=== PATIENT | female | born 1940 | race Caucasian/White ===

== ENCOUNTER 2022-11-07 20:34 | Inpatient (IN) | payer OTHER ==
[2022-11-07] MEDS ORDERED: methylPREDNISolone NA SUCC 125 MG/2 ML VIAL ONE (20:38)
[2022-11-07] MEDS ORDERED: methylPREDNISolone NA SUCC 125 MG/2 ML VIAL IVPUSH ONE (20:47)
[2022-11-07 21:19] LABS: ARTERIAL BLD GAS O2 SATURATION 88.5 % (95-98); ARTERIAL BLOOD GAS PO2 62.6 mmHg (80-100); ARTERIAL BLOOD GAS pH 7.306 (7.350-7.450)
[2022-11-07] MEDS ORDERED: FUROSEMIDE 40 MG/4 ML INJECTABLE VIAL IVPUSH ONE (21:21)
[2022-11-07 21:46] LABS: POTASSIUM 3.9 mmol/L (3.5-5.1)
[2022-11-07 21:47] LABS: INR 1.72 (0.83-1.09); PROTHROMBIN TIME (PATIENT) 19.8 SEC (9.7-13.0)
[2022-11-07 21:48] LABS: CALCIUM 9.3 mg/dL (8.5-10.1)
[2022-11-07 21:49] LABS: ACTIVATED PTT 42.7 SECONDS (25.2-36.5); ALBUMIN 3.1 g/dl (3.4-5.0); BLOOD UREA NITROGEN 67.8 mg/dL (7-18)
[2022-11-07 21:52] LABS: CREATININE 1.6 mg/dL (0.55-1.3); PHOSPHOROUS 3.4 mg/dL (2.5-4.9)
[2022-11-07 21:53] LABS: BILIRUBIN,TOTAL 1.2 mg/dL (0.2-1)
[2022-11-07 21:54] LABS: TOT PROT 6.1 g/dl (6.4-8.2)
[2022-11-07] MEDS ORDERED: FUROSEMIDE 40 MG/4 ML INJECTABLE VIAL ONE (21:57)
[2022-11-07 22:01] LABS: N-TERMINAL BNP 7631.5 pg/ml (5-450)
[2022-11-07 22:03] LABS: HEMOGLOBIN 11.3 GM/dL (10.7-15.3); MCH 27.2 pg (25.7-33.7); MCHC 29.7 g/dl (32.0-36.0); MEAN CELL VOLUME 91.7 fl (80-96); MEAN PLT VOLUME 7.9 fl (7.5-11.1); PLATELET COUNT 244 10^3/uL (134-434); RBC 4.14 M/mm3 (3.60-5.2); RDW 19.4 % (11.6-15.6); WHITE BLOOD COUNT 18.6 K/mm3 (4.0-10.0)
[2022-11-07 22:31] LABS: EPI CELLS 5 /uL (0-25.1); HYALINE CASTS 0 /uL (0-3.1); PH,URINE 5.5 (5.0-8.0); URINE APPEARANCE CLOUDY; URINE BILIRUBIN NEGATIVE (NEGATIVE); URINE COLOR YELLOW; URINE GLUCOSE (UA) NEGATIVE (NEGATIVE); URINE KETONE NEGATIVE (NEGATIVE); URINE LEUK ESTERASE 3+ (NEGATIVE); URINE NITRITE POSITIVE (NEGATIVE); URINE PROTEIN 2+ (NEGATIVE); URINE RBC 44 /uL (0-23.9); URINE WBC 2892 /uL (0-25.8)
[2022-11-07 22:34] LABS: ARTERIAL BLD GAS O2 SATURATION 94.4 % (95-98); ARTERIAL BLOOD GAS BASE EXCESS 9.9 mmol/L (-2-2); ARTERIAL BLOOD GAS PO2 77.1 mmHg (80-100); ARTERIAL BLOOD GAS pH 7.358 (7.350-7.450)
[2022-11-07 22:43] LABS: ANISOCYTOSIS 1+; MACROCYTOSIS 0
[2022-11-07] MEDS ORDERED: CEFTRIAXONE 1 GM/50 ML BAG ONE (22:52)
[2022-11-07 23:59] LABS: URINE BACTERIA 1347.7 /uL (0-1359)
[2022-11-08] MEDS ORDERED: APIXABAN 2.5 MG TABLET PO SCH (00:30)
[2022-11-08 04:18] LABS: ARTERIAL BLD GAS O2 SATURATION 97.3 % (95-98); ARTERIAL BLOOD GAS BASE EXCESS 12.7 mmol/L (-2-2); ARTERIAL BLOOD GAS PO2 98.1 mmHg (80-100); ARTERIAL BLOOD GAS pH 7.413 (7.350-7.450)
[2022-11-08 04:20] LABS: ALLENS TEST POSITIVE
[2022-11-08 04:21] LABS: VENT MODE S/T
[2022-11-08] MEDS ORDERED: ALBUTEROL SO4 2.5/IPRATROPIUM 0.5 INH SOL 3 ML VIAL.NEB. NEB PRN ×2 (04:52→08:47)
[2022-11-08] MEDS ORDERED: methylPREDNISolone NA SUCC 40 MG/1 ML VIAL IVPUSH SCH (05:00)
[2022-11-08 06:53] LABS: ALLENS TEST POSITIVE; ARTERIAL BLD GAS O2 SATURATION 91.6 % (95-98); ARTERIAL BLOOD GAS BASE EXCESS 11.2 mmol/L (-2-2); ARTERIAL BLOOD GAS PO2 65.9 mmHg (80-100); ARTERIAL BLOOD GAS pH 7.365 (7.350-7.450)
[2022-11-08 06:54] LABS: VENT MODE S/T
[2022-11-08] MEDS ORDERED: LEVOTHYROXINE NA 88 MCG TABLET (FP) PO SCH (07:00)
[2022-11-08] MEDS ORDERED: sitaGLIPtin PHOSPHATE 50 MG TABLET PO SCH (07:00)
[2022-11-08] MEDS ORDERED: INSULIN SLIDING SCALE (NOVOLOG) 1 VIAL SQ SCH (07:00)
[2022-11-08 08:33] LABS: LACTIC ACID 2.5 mmol/L (0.4-2.0)
[2022-11-08] MEDS: EZETIMIBE 10 MG TABLET (FP) PO SCH (09:24)
[2022-11-08] MEDS: MUPIROCIN 2% TOPICAL OINTMENT FOR DECOLONIZATION NS SCH ×2 (09:29→21:48)
[2022-11-08] MEDS: methylPREDNISolone NA SUCC 40 MG/1 ML VIAL IVPUSH SCH ×2 (09:29→17:01)
[2022-11-08] MEDS ORDERED: FUROSEMIDE 20 MG TABLET (FP) PO SCH (10:00)
[2022-11-08] MEDS ORDERED: CEFTRIAXONE 1 GM in DEXTROSE 5%-WATER - 50 ML IVPB SCH (10:00)
[2022-11-08] MEDS ORDERED: EZETIMIBE 10 MG TABLET (FP) PO SCH (10:00)
[2022-11-08] MEDS ORDERED: ENOXAPARIN NA (PORCINE) 120 MG/0.8 ML DISP.SYRIN SQ SCH (10:00)
[2022-11-08] MEDS: ENOXAPARIN NA (PORCINE) 120 MG/0.8 ML DISP.SYRIN SQ SCH ×2 (10:55→21:48)
[2022-11-08] MEDS ORDERED: INSULIN (NOVOLOG) ASPART 100 UNITS/ML 10ML VIAL ONE ×2 (11:16→16:38)
[2022-11-08] MEDS: INSULIN SLIDING SCALE (NOVOLOG) 1 VIAL SQ SCH ×3 (11:18→21:50)
[2022-11-08] MEDS: MEROPENEM 500 MG in DEXTROSE 5%-WATER 100 ML IVPB SCH ×2 (12:32→17:01)
[2022-11-08] MEDS: AZITHROMYCIN IVPB 500 MG/250 ML BAG IVPB SCH (12:33)
[2022-11-08] MEDS: ALBUTEROL SO4 2.5/IPRATROPIUM 0.5 INH SOL 3 ML VIAL.NEB. NEB SCH ×3 (13:18→20:44)
[2022-11-08] MEDS ORDERED: DEXMEDETOMIDINE PREMIX 400 MCG/100 ML BAG IVPB ONE (14:23)
[2022-11-08] MEDS: DEXMEDETOMIDINE PREMIX 400 MCG/100 ML BAG IVPB SCH (14:48)
[2022-11-08] MEDS: CHLORHEXIDINE GLUCONATE 4% CLEANSER FOR DECOLONIZATION TP SCH (21:48)
[2022-11-09] MEDS: MEROPENEM 500 MG in DEXTROSE 5%-WATER 100 ML IVPB SCH ×3 (01:15→17:07)
[2022-11-09] MEDS: methylPREDNISolone NA SUCC 40 MG/1 ML VIAL IVPUSH SCH ×2 (01:16→09:20)
[2022-11-09] MEDS: INSULIN SLIDING SCALE (NOVOLOG) 1 VIAL SQ SCH ×4 (06:07→21:51)
[2022-11-09] MEDS ORDERED: LEVOTHYROXINE NA 88 MCG TABLET (FP) PO SCH (07:00)
[2022-11-09 07:14] LABS: HEMATOCRIT 31.6 % (32.4-45.2); HEMOGLOBIN 9.7 GM/dL (10.7-15.3); MCH 27.7 pg (25.7-33.7); MCHC 30.6 g/dl (32.0-36.0); MEAN CELL VOLUME 90.5 fl (80-96); MEAN PLT VOLUME 8.5 fl (7.5-11.1); PLATELET COUNT 155 10^3/uL (134-434); RBC 3.49 M/mm3 (3.60-5.2); WHITE BLOOD COUNT 12.8 K/mm3 (4.0-10.0)
[2022-11-09 07:32] LABS: POTASSIUM 4.6 mmol/L (3.5-5.1)
[2022-11-09 07:34] LABS: BLOOD UREA NITROGEN 72.2 mg/dL (7-18); MAGNESIUM 2.1 mg/dL (1.8-2.4)
[2022-11-09 07:37] LABS: CREATININE 1.6 mg/dL (0.55-1.3)
[2022-11-09 07:38] LABS: PHOSPHOROUS 4.2 mg/dL (2.5-4.9)
[2022-11-09 07:39] LABS: BILIRUBIN,TOTAL 0.8 mg/dL (0.2-1); TOT PROT 4.8 g/dl (6.4-8.2)
[2022-11-09 07:46] LABS: ALBUMIN 2.3 g/dl (3.4-5.0)
[2022-11-09] MEDS: DEXMEDETOMIDINE PREMIX 400 MCG/100 ML BAG IVPB SCH ×3 (07:51→20:00)
[2022-11-09] MEDS: ALBUTEROL SO4 2.5/IPRATROPIUM 0.5 INH SOL 3 ML VIAL.NEB. NEB SCH ×4 (08:15→20:35)
[2022-11-09 09:05] LABS: ANISOCYTOSIS 0; HELMET CELLS 0; HOWELL-JOLLY BODIES 0; MACROCYTOSIS 0; OVALOCYTE 0; ROULEAU 0; SICKELED CELLS 0; TARGET CELLS 0; TEAR DROP CELLS 0; TOXIC GRANULATION 0
[2022-11-09] MEDS: PANTOPRAZOLE SODIUM 40 MG VIAL IVPUSH SCH (09:19)
[2022-11-09] MEDS: ENOXAPARIN NA (PORCINE) 120 MG/0.8 ML DISP.SYRIN SQ SCH ×2 (09:19→21:51)
[2022-11-09] MEDS: AZITHROMYCIN IVPB 500 MG/250 ML BAG IVPB SCH (09:19)
[2022-11-09] MEDS: MUPIROCIN 2% TOPICAL OINTMENT FOR DECOLONIZATION NS SCH ×2 (09:20→21:51)
[2022-11-09] MEDS: EZETIMIBE 10 MG TABLET (FP) PO SCH (09:21)
[2022-11-09 09:59] LABS: ARTERIAL BLOOD GAS BASE EXCESS 11.6 mmol/L (-2-2); ARTERIAL BLOOD GAS PO2 93.2 mmHg (80-100); ARTERIAL BLOOD GAS pH 7.418 (7.350-7.450)
[2022-11-09 10:11] LABS: ALLENS TEST POSITIVE
[2022-11-09 10:12] LABS: VENT MODE S/T
[2022-11-09 10:13] LABS: VENT RATE 20
[2022-11-09] MEDS ORDERED: INSULIN (NOVOLOG) ASPART 100 UNITS/ML 10ML VIAL ONE (11:01)
[2022-11-09] MEDS: LEVOTHYROXINE SODIUM 100 MCG 5 ML VIAL IVPUSH SCH (11:05)
[2022-11-09] MEDS ORDERED: FUROSEMIDE 40 MG/4 ML INJECTABLE VIAL IVPUSH ONE (11:08)
[2022-11-09] MEDS ORDERED: risperiDONE 1 MG TABLET PO SCH (11:30)
[2022-11-09] MEDS ORDERED: LORazepam 2 MG/ML SDV VIAL IVPUSH ONE (11:58)
[2022-11-09] MEDS ORDERED: RAPID SEQUENCE INTUBATION KIT NR ONE (17:50)
[2022-11-09] MEDS: CHLORHEXIDINE GLUCONATE 4% CLEANSER FOR DECOLONIZATION TP SCH (21:52)
[2022-11-10] MEDS: DEXMEDETOMIDINE PREMIX 400 MCG/100 ML BAG IVPB SCH ×6 (00:45→23:43)
[2022-11-10] MEDS: MEROPENEM 500 MG in DEXTROSE 5%-WATER 100 ML IVPB SCH ×3 (02:21→17:01)
[2022-11-10] MEDS: INSULIN SLIDING SCALE (NOVOLOG) 1 VIAL SQ SCH ×4 (06:06→21:12)
[2022-11-10 07:45] LABS: HEMATOCRIT 33.2 % (32.4-45.2); HEMOGLOBIN 10.2 GM/dL (10.7-15.3); MCH 27.7 pg (25.7-33.7); MCHC 30.7 g/dl (32.0-36.0); MEAN CELL VOLUME 90.2 fl (80-96); MEAN PLT VOLUME 8.4 fl (7.5-11.1); PLATELET COUNT 159 10^3/uL (134-434); RBC 3.68 M/mm3 (3.60-5.2); WHITE BLOOD COUNT 11.5 K/mm3 (4.0-10.0)
[2022-11-10 08:38] LABS: POTASSIUM 3.6 mmol/L (3.5-5.1)
[2022-11-10] MEDS: AZITHROMYCIN IVPB 500 MG/250 ML BAG IVPB SCH (09:01)
[2022-11-10] MEDS: PANTOPRAZOLE SODIUM 40 MG VIAL IVPUSH SCH (09:02)
[2022-11-10] MEDS: methylPREDNISolone NA SUCC 40 MG/1 ML VIAL IVPUSH SCH (09:02)
[2022-11-10] MEDS: ENOXAPARIN NA (PORCINE) 120 MG/0.8 ML DISP.SYRIN SQ SCH ×2 (09:02→21:07)
[2022-11-10] MEDS: LEVOTHYROXINE SODIUM 100 MCG 5 ML VIAL IVPUSH SCH (09:02)
[2022-11-10] MEDS: EZETIMIBE 10 MG TABLET (FP) PO SCH (09:03)
[2022-11-10] MEDS: MUPIROCIN 2% TOPICAL OINTMENT FOR DECOLONIZATION NS SCH ×2 (09:03→21:06)
[2022-11-10 09:14] LABS: ALBUMIN 2.5 g/dl (3.4-5.0); BILIRUBIN,TOTAL 0.7 mg/dL (0.2-1); BLOOD UREA NITROGEN 74.5 mg/dL (7-18); CREATININE 1.5 mg/dL (0.55-1.3); PHOSPHOROUS 3.9 mg/dL (2.5-4.9); TOT PROT 4.7 g/dl (6.4-8.2)
[2022-11-10 10:00] LABS: ARTERIAL BLD GAS O2 SATURATION 97.6 % (95-98); ARTERIAL BLOOD GAS BASE EXCESS 14.8 mmol/L (-2-2); ARTERIAL BLOOD GAS pH 7.501 (7.350-7.450)
[2022-11-10 10:07] LABS: ALLENS TEST POSITIVE
[2022-11-10 10:08] LABS: VENT MODE S/T; VENT RATE 18
[2022-11-10] MEDS ORDERED: INSULIN (NOVOLOG) ASPART 100 UNITS/ML 10ML VIAL ONE ×3 (11:25→20:56)
[2022-11-10] MEDS: METOPROLOL TARTRATE 5 MG/5 ML VIAL IVPUSH SCH ×3 (12:14→23:42)
[2022-11-10] MEDS ORDERED: AMINO ACIDS 4.25%/D5W 1,000 ML IV SCH (17:30)
[2022-11-10] MEDS: ALBUTEROL SO4 2.5/IPRATROPIUM 0.5 INH SOL 3 ML VIAL.NEB. NEB SCH (20:50)
[2022-11-10] MEDS: CHLORHEXIDINE GLUCONATE 4% CLEANSER FOR DECOLONIZATION TP SCH (21:07)
[2022-11-11] MEDS: MEROPENEM 500 MG in DEXTROSE 5%-WATER 100 ML IVPB SCH ×3 (01:58→17:56)
[2022-11-11] MEDS: DEXMEDETOMIDINE PREMIX 400 MCG/100 ML BAG IVPB SCH ×6 (03:11→23:42)
[2022-11-11] MEDS: METOPROLOL TARTRATE 5 MG/5 ML VIAL IVPUSH SCH ×4 (05:38→23:41)
[2022-11-11] MEDS: INSULIN SLIDING SCALE (NOVOLOG) 1 VIAL SQ SCH ×4 (06:07→23:11)
[2022-11-11] MEDS: ALBUTEROL SO4 2.5/IPRATROPIUM 0.5 INH SOL 3 ML VIAL.NEB. NEB SCH ×3 (07:30→15:41)
[2022-11-11 08:22] LABS: HEMATOCRIT 29.3 % (32.4-45.2); MCH 27.6 pg (25.7-33.7); MCHC 30.6 g/dl (32.0-36.0); MEAN CELL VOLUME 90.2 fl (80-96); MEAN PLT VOLUME 8.3 fl (7.5-11.1); PLATELET COUNT 122 10^3/uL (134-434); RBC 3.25 M/mm3 (3.60-5.2); RDW 19.2 % (11.6-15.6); WHITE BLOOD COUNT 11.1 K/mm3 (4.0-10.0)
[2022-11-11 09:01] LABS: ANISOCYTOSIS 1+; MACROCYTOSIS 1+
[2022-11-11 09:03] LABS: BLOOD UREA NITROGEN 70.8 mg/dL (7-18)
[2022-11-11 09:04] LABS: CALCIUM 8.2 mg/dL (8.5-10.1); MAGNESIUM 1.8 mg/dL (1.8-2.4)
[2022-11-11 09:06] LABS: CREATININE 1.4 mg/dL (0.55-1.3); PHOSPHOROUS 3.5 mg/dL (2.5-4.9)
[2022-11-11 09:07] LABS: BILIRUBIN,TOTAL 0.9 mg/dL (0.2-1); TOT PROT 3.9 g/dl (6.4-8.2)
[2022-11-11] MEDS: PANTOPRAZOLE SODIUM 40 MG VIAL IVPUSH SCH (09:09)
[2022-11-11] MEDS: ENOXAPARIN NA (PORCINE) 120 MG/0.8 ML DISP.SYRIN SQ SCH (09:09)
[2022-11-11] MEDS: methylPREDNISolone NA SUCC 40 MG/1 ML VIAL IVPUSH SCH (09:09)
[2022-11-11 09:10] LABS: ALBUMIN 1.9 g/dl (3.4-5.0)
[2022-11-11] MEDS: EZETIMIBE 10 MG TABLET (FP) PO SCH (09:10)
[2022-11-11] MEDS: AZITHROMYCIN IVPB 500 MG/250 ML BAG IVPB SCH (09:10)
[2022-11-11] MEDS: LEVOTHYROXINE SODIUM 100 MCG 5 ML VIAL IVPUSH SCH (09:10)
[2022-11-11] MEDS: MUPIROCIN 2% TOPICAL OINTMENT FOR DECOLONIZATION NS SCH ×2 (09:11→23:00)
[2022-11-11] MEDS: FUROSEMIDE 40 MG/4 ML INJECTABLE VIAL IVPUSH SCH (12:33)
[2022-11-11 12:35] LABS: ARTERIAL BLD GAS O2 SATURATION 95.2 % (95-98); ARTERIAL BLOOD GAS BASE EXCESS 15.8 mmol/L (-2-2); ARTERIAL BLOOD GAS PO2 73.6 mmHg (80-100); ARTERIAL BLOOD GAS pH 7.468 (7.350-7.450)
[2022-11-11 12:38] LABS: ALLENS TEST POSITIVE
[2022-11-11] MEDS ORDERED: HALOPERIDOL LACTATE 5 MG/ML IM ONE (15:10)
[2022-11-11] MEDS ORDERED: METOPROLOL TARTRATE 5 MG/5 ML VIAL IVPUSH ONE ×2 (15:10→20:15)
[2022-11-11 16:16] VITALS: BMI 54.7
[2022-11-11] MEDS ORDERED: dilTIAZem HCL 50 MG/10 ML - 10 ML VIAL IVPUSH ONE (16:36)
[2022-11-11 19:42] LABS: HEMATOCRIT 29.6 % (32.4-45.2); HEMOGLOBIN 9.2 GM/dL (10.7-15.3); MCH 27.3 pg (25.7-33.7); MCHC 31.1 g/dl (32.0-36.0); MEAN PLT VOLUME 7.5 fl (7.5-11.1); PLATELET COUNT 122 10^3/uL (134-434); RBC 3.37 M/mm3 (3.60-5.2); RDW 19.6 % (11.6-15.6); WHITE BLOOD COUNT 11.4 K/mm3 (4.0-10.0)
[2022-11-11 19:52] LABS: INR 1.45 (0.83-1.09); PROTHROMBIN TIME (PATIENT) 16.8 SEC (9.7-13.0)
[2022-11-11 19:55] LABS: ACTIVATED PTT 95.5 SECONDS (25.2-36.5)
[2022-11-11] MEDS ORDERED: METOPROLOL TARTRATE 5 MG/5 ML VIAL ONE (20:07)
[2022-11-11] MEDS ORDERED: MAGNESIUM SULFATE IN WATER 2 GM/50 ML IVPB IVPB ONE (20:30)
[2022-11-11 21:09] LABS: POTASSIUM 3.5 mmol/L (3.5-5.1)
[2022-11-11 21:10] LABS: CALCIUM 8.3 mg/dL (8.5-10.1)
[2022-11-11 21:11] LABS: BLOOD UREA NITROGEN 68.4 mg/dL (7-18)
[2022-11-11 21:14] LABS: CREATININE 1.4 mg/dL (0.55-1.3)
[2022-11-11] MEDS: CHLORHEXIDINE GLUCONATE 4% CLEANSER FOR DECOLONIZATION TP SCH (22:59)
[2022-11-12] MEDS: DEXMEDETOMIDINE PREMIX 400 MCG/100 ML BAG IVPB SCH ×5 (02:07→17:45)
[2022-11-12] MEDS: MEROPENEM 500 MG in DEXTROSE 5%-WATER 100 ML IVPB SCH ×3 (02:07→17:44)
[2022-11-12] MEDS: METOPROLOL TARTRATE 5 MG/5 ML VIAL IVPUSH SCH ×4 (05:47→17:47)
[2022-11-12 06:20] LABS: ARTERIAL BLD GAS O2 SATURATION 95.5 % (95-98); ARTERIAL BLOOD GAS BASE EXCESS 11.4 mmol/L (-2-2); ARTERIAL BLOOD GAS PO2 74.4 mmHg (80-100); ARTERIAL BLOOD GAS pH 7.469 (7.350-7.450)
[2022-11-12] MEDS: INSULIN SLIDING SCALE (NOVOLOG) 1 VIAL SQ SCH ×4 (06:22→22:27)
[2022-11-12] MEDS ORDERED: INSULIN (NOVOLOG) ASPART 100 UNITS/ML 10ML VIAL ONE (06:22)
[2022-11-12 07:16] LABS: HEMATOCRIT 29.3 % (32.4-45.2); HEMOGLOBIN 9.1 GM/dL (10.7-15.3); MCH 27.6 pg (25.7-33.7); MCHC 30.9 g/dl (32.0-36.0); MEAN CELL VOLUME 89.2 fl (80-96); MEAN PLT VOLUME 8.4 fl (7.5-11.1); PLATELET COUNT 125 10^3/uL (134-434); RBC 3.29 M/mm3 (3.60-5.2); RDW 19.5 % (11.6-15.6); WHITE BLOOD COUNT 11.6 K/mm3 (4.0-10.0)
[2022-11-12 07:19] LABS: INR 1.28 (0.83-1.09); PROTHROMBIN TIME (PATIENT) 14.8 SEC (9.7-13.0)
[2022-11-12 07:22] LABS: ACTIVATED PTT 82.7 SECONDS (25.2-36.5)
[2022-11-12 08:34] LABS: CALCIUM 8.8 mg/dL (8.5-10.1)
[2022-11-12 08:35] LABS: BLOOD UREA NITROGEN 65.5 mg/dL (7-18)
[2022-11-12 08:38] LABS: CREATININE 1.3 mg/dL (0.55-1.3); PHOSPHOROUS 3.3 mg/dL (2.5-4.9)
[2022-11-12 08:42] LABS: POTASSIUM 3.4 mmol/L (3.5-5.1)
[2022-11-12] MEDS: FUROSEMIDE 40 MG/4 ML INJECTABLE VIAL IVPUSH SCH (09:06)
[2022-11-12] MEDS: PANTOPRAZOLE SODIUM 40 MG VIAL IVPUSH SCH (09:06)
[2022-11-12] MEDS: EZETIMIBE 10 MG TABLET (FP) PO SCH (09:07)
[2022-11-12] MEDS: AZITHROMYCIN IVPB 500 MG/250 ML BAG IVPB SCH (09:07)
[2022-11-12] MEDS: MUPIROCIN 2% TOPICAL OINTMENT FOR DECOLONIZATION NS SCH ×2 (09:08→22:28)
[2022-11-12] MEDS: LEVOTHYROXINE SODIUM 100 MCG 5 ML VIAL IVPUSH SCH (09:08)
[2022-11-12] MEDS: NOREPINEPHRINE BITARTRATE/D5W 8 MG/250 ML BAG IVPB SCH (13:30)
[2022-11-12] MEDS ORDERED: FUROSEMIDE 40 MG/4 ML INJECTABLE VIAL IVPUSH ONE (17:00)
[2022-11-12] MEDS ORDERED: DEXTROSE 5%-WATER - 1,000 ML IV SCH (17:00)
[2022-11-12] MEDS: KCL 10 MEQ IVPB 10 MEQ/100 ML INFUS.BAG IVPB SCH ×3 (17:45→21:14)
[2022-11-12] MEDS: CHLORHEXIDINE GLUCONATE 4% CLEANSER FOR DECOLONIZATION TP SCH (22:27)
[2022-11-13] MEDS: METOPROLOL TARTRATE 5 MG/5 ML VIAL IVPUSH SCH ×4 (00:27→17:19)
[2022-11-13] MEDS: MEROPENEM 500 MG in DEXTROSE 5%-WATER 100 ML IVPB SCH ×3 (01:00→17:19)
[2022-11-13] MEDS: DEXMEDETOMIDINE PREMIX 400 MCG/100 ML BAG IVPB SCH ×7 (05:00→23:25)
[2022-11-13] MEDS: INSULIN SLIDING SCALE (NOVOLOG) 1 VIAL SQ SCH ×4 (06:17→21:18)
[2022-11-13 08:40] LABS: LACTIC ACID 3.2 mmol/L (0.4-2.0)
[2022-11-13] MEDS: AZITHROMYCIN IVPB 500 MG/250 ML BAG IVPB SCH (09:00)
[2022-11-13] MEDS: PANTOPRAZOLE SODIUM 40 MG VIAL IVPUSH SCH (09:01)
[2022-11-13] MEDS: FUROSEMIDE 40 MG/4 ML INJECTABLE VIAL IVPUSH SCH (09:01)
[2022-11-13] MEDS: EZETIMIBE 10 MG TABLET (FP) PO SCH (09:02)
[2022-11-13] MEDS: LEVOTHYROXINE SODIUM 100 MCG 5 ML VIAL IVPUSH SCH (09:02)
[2022-11-13] MEDS ORDERED: ACETAMINOPHEN 1000 MG/100 ML BAG IVPB PRN (09:31)
[2022-11-13] MEDS ORDERED: FUROSEMIDE 40 MG/4 ML INJECTABLE VIAL IVPUSH ONE (10:44)
[2022-11-13] MEDS: DEXTROSE 10%-WATER - 1,000 ML IV SCH (10:46)
[2022-11-13] MEDS: NOREPINEPHRINE BITARTRATE/D5W 8 MG/250 ML BAG IVPB SCH (16:09)
[2022-11-13] MEDS: CHLORHEXIDINE GLUCONATE 4% CLEANSER FOR DECOLONIZATION TP SCH (21:05)
[2022-11-13] MEDS ORDERED: INSULIN (NOVOLOG) ASPART 100 UNITS/ML 10ML VIAL ONE (21:18)
[2022-11-14] MEDS: MEROPENEM 500 MG in DEXTROSE 5%-WATER 100 ML IVPB SCH ×3 (01:25→17:18)
[2022-11-14] MEDS: DEXMEDETOMIDINE PREMIX 400 MCG/100 ML BAG IVPB SCH ×6 (02:00→22:00)
[2022-11-14] MEDS: METOPROLOL TARTRATE 5 MG/5 ML VIAL IVPUSH SCH ×4 (02:09→17:17)
[2022-11-14] MEDS: INSULIN SLIDING SCALE (NOVOLOG) 1 VIAL SQ SCH ×4 (06:37→21:24)
[2022-11-14 07:06] LABS: HEMATOCRIT 26.7 % (32.4-45.2); HEMOGLOBIN 8.2 GM/dL (10.7-15.3); MCH 27.5 pg (25.7-33.7); MCHC 30.6 g/dl (32.0-36.0); MEAN CELL VOLUME 89.9 fl (80-96); MEAN PLT VOLUME 8.3 fl (7.5-11.1); PLATELET COUNT 111 10^3/uL (134-434); RBC 2.97 M/mm3 (3.60-5.2); RDW 19.6 % (11.6-15.6); WHITE BLOOD COUNT 18.5 K/mm3 (4.0-10.0)
[2022-11-14 08:26] LABS: CHLORIDE 97 mmol/L (98-107); SODIUM 144 mmol/L (136-145)
[2022-11-14 08:28] LABS: CALCIUM 8.2 mg/dL (8.5-10.1)
[2022-11-14 08:29] LABS: CO2 42 mmol/L (21-32); GLUCOSE,RANDOM 262 mg/dL (74-106); MAGNESIUM 1.4 mg/dL (1.8-2.4)
[2022-11-14 08:31] LABS: ANISOCYTOSIS 1+; MACROCYTOSIS 0
[2022-11-14 08:32] LABS: CREATININE 1.1 mg/dL (0.55-1.3); PHOSPHOROUS 2.6 mg/dL (2.5-4.9); SGOT/AST 21 U/L (15-37); SGPT/ALT 23 U/L (13-61)
[2022-11-14 08:34] LABS: BILIRUBIN,TOTAL 1.8 mg/dL (0.2-1); TOT PROT 4.1 g/dl (6.4-8.2)
[2022-11-14 08:35] LABS: ALK PHOS 189 U/L (45-117); ANION GAP 5 MMOL/L (8-16); POTASSIUM 2.9 mmol/L (3.5-5.1)
[2022-11-14] MEDS ORDERED: MAGNESIUM SULF 50% (8.12 MEQ/2 ML-1 GM VIAL) IVPB ONE (08:47)
[2022-11-14] MEDS: KCL 10 MEQ IVPB 10 MEQ/100 ML INFUS.BAG IVPB SCH ×3 (08:54→10:50)
[2022-11-14] MEDS ORDERED: POTASSIUM PHOSPHATE 30 MM in DEXTROSE 5%-WATER - 250 ML IVPB ONE (09:00)
[2022-11-14] MEDS: LEVOTHYROXINE SODIUM 100 MCG 5 ML VIAL IVPUSH SCH (09:15)
[2022-11-14] MEDS: EZETIMIBE 10 MG TABLET (FP) PO SCH (09:17)
[2022-11-14] MEDS: AZITHROMYCIN IVPB 500 MG/250 ML BAG IVPB SCH (09:18)
[2022-11-14] MEDS: NOREPINEPHRINE BITARTRATE/D5W 8 MG/250 ML BAG IVPB SCH ×2 (09:22→14:58)
[2022-11-14] MEDS ORDERED: POTASSIUM PHOSPHATE 30 MM in DEXTROSE 5%-WATER - 500 ML IVPB ONE (09:30)
[2022-11-14] MEDS: PANTOPRAZOLE SODIUM 40 MG VIAL IVPUSH SCH (09:35)
[2022-11-14] MEDS ORDERED: INSULIN (NOVOLOG) ASPART 100 UNITS/ML 10ML VIAL ONE (17:12)
[2022-11-14] MEDS: HALOPERIDOL LACTATE 5 MG/ML IM PRN (17:18)
[2022-11-14] MEDS: DEXTROSE 10%-WATER - 1,000 ML IV SCH (18:20)
[2022-11-14] MEDS: ENOXAPARIN NA (PORCINE) 120 MG/0.8 ML DISP.SYRIN SQ SCH (21:24)
[2022-11-14] MEDS: CHLORHEXIDINE GLUCONATE 4% CLEANSER FOR DECOLONIZATION TP SCH (21:24)
[2022-11-15] MEDS: MEROPENEM 500 MG in DEXTROSE 5%-WATER 100 ML IVPB SCH ×3 (01:14→17:01)
[2022-11-15] MEDS: METOPROLOL TARTRATE 5 MG/5 ML VIAL IVPUSH SCH ×5 (01:14→23:36)
[2022-11-15] MEDS ORDERED: INSULIN (NOVOLOG) ASPART 100 UNITS/ML 10ML VIAL ONE ×2 (05:55→11:58)
[2022-11-15] MEDS: INSULIN SLIDING SCALE (NOVOLOG) 1 VIAL SQ SCH ×4 (06:14→21:27)
[2022-11-15] MEDS: DEXMEDETOMIDINE PREMIX 400 MCG/100 ML BAG IVPB SCH ×4 (08:00→23:36)
[2022-11-15] MEDS: EZETIMIBE 10 MG TABLET (FP) PO SCH ×2 (09:28→10:05)
[2022-11-15] MEDS: FUROSEMIDE 40 MG/4 ML INJECTABLE VIAL IVPUSH SCH (10:04)
[2022-11-15] MEDS: ENOXAPARIN NA (PORCINE) 120 MG/0.8 ML DISP.SYRIN SQ SCH ×2 (10:04→21:27)
[2022-11-15] MEDS: AZITHROMYCIN IVPB 500 MG/250 ML BAG IVPB SCH (10:05)
[2022-11-15] MEDS: HALOPERIDOL LACTATE 5 MG/ML IM PRN ×3 (10:09→21:28)
[2022-11-15] MEDS: PANTOPRAZOLE SODIUM 40 MG VIAL IVPUSH SCH (10:11)
[2022-11-15] MEDS: DEXTROSE 10%-WATER - 1,000 ML IV SCH (10:11)
[2022-11-15 12:50] LABS: ARTERIAL BLD GAS O2 SATURATION 97.7 % (95-98); ARTERIAL BLOOD GAS BASE EXCESS 13.5 mmol/L (-2-2); ARTERIAL BLOOD GAS PO2 93.5 mmHg (80-100); ARTERIAL BLOOD GAS pH 7.519 (7.350-7.450)
[2022-11-15 12:52] LABS: ALLENS TEST POSITIVE
[2022-11-15 15:32] LABS: HEMATOCRIT 24.2 % (32.4-45.2); HEMOGLOBIN 7.6 GM/dL (10.7-15.3); MCH 27.8 pg (25.7-33.7); MCHC 31.2 g/dl (32.0-36.0); MEAN CELL VOLUME 89.3 fl (80-96); MEAN PLT VOLUME 8.7 fl (7.5-11.1); PLATELET COUNT 118 10^3/uL (134-434); RBC 2.72 M/mm3 (3.60-5.2); RDW 19.4 % (11.6-15.6); WHITE BLOOD COUNT 14.8 K/mm3 (4.0-10.0)
[2022-11-15 15:48] LABS: BLOOD UREA NITROGEN 37.8 mg/dL (7-18); CALCIUM 7.6 mg/dL (8.5-10.1); MAGNESIUM 1.4 mg/dL (1.8-2.4)
[2022-11-15 15:49] LABS: ALBUMIN 1.8 g/dl (3.4-5.0)
[2022-11-15 15:53] LABS: BILIRUBIN,TOTAL 0.9 mg/dL (0.2-1); TOT PROT 3.8 g/dl (6.4-8.2)
[2022-11-15] MEDS ORDERED: MAGNESIUM SULF 50% (8.12 MEQ/2 ML-1 GM VIAL) IVPB ONE (16:36)
[2022-11-15] MEDS: KCL 10 MEQ IVPB 10 MEQ/100 ML INFUS.BAG IVPB SCH ×6 (16:56→23:33)
[2022-11-15] MEDS ORDERED: MAGNESIUM SULF 50% (8.12 MEQ/2 ML-1 GM VIAL) ONE (17:06)
[2022-11-15] MEDS: LEVOTHYROXINE SODIUM 100 MCG 5 ML VIAL IVPUSH SCH (17:21)
[2022-11-15] MEDS: CHLORHEXIDINE GLUCONATE 4% CLEANSER FOR DECOLONIZATION TP SCH (21:28)
[2022-11-15] MEDS: ALBUTEROL SO4 2.5/IPRATROPIUM 0.5 INH SOL 3 ML VIAL.NEB. NEB PRN (23:35)
[2022-11-16] MEDS: MEROPENEM 500 MG in DEXTROSE 5%-WATER 100 ML IVPB SCH ×3 (02:10→17:12)
[2022-11-16 05:49] LABS: BLOOD UREA NITROGEN 33.3 mg/dL (7-18); CALCIUM 7.8 mg/dL (8.5-10.1); CREATININE 0.9 mg/dL (0.55-1.3); MAGNESIUM 1.8 mg/dL (1.8-2.4); PHOSPHOROUS 2.6 mg/dL (2.5-4.9); POTASSIUM 3.6 mmol/L (3.5-5.1)
[2022-11-16] MEDS: INSULIN SLIDING SCALE (NOVOLOG) 1 VIAL SQ SCH ×4 (06:01→21:03)
[2022-11-16] MEDS: METOPROLOL TARTRATE 5 MG/5 ML VIAL IVPUSH SCH ×4 (06:01→23:52)
[2022-11-16] MEDS: DEXMEDETOMIDINE PREMIX 400 MCG/100 ML BAG IVPB SCH ×3 (06:47→20:13)
[2022-11-16 07:32] LABS: HEMATOCRIT 23.5 % (32.4-45.2); HEMOGLOBIN 7.3 GM/dL (10.7-15.3); MCH 27.1 pg (25.7-33.7); MEAN CELL VOLUME 87.6 fl (80-96); MEAN PLT VOLUME 8.5 fl (7.5-11.1); PLATELET COUNT 116 10^3/uL (134-434); RBC 2.68 M/mm3 (3.60-5.2); RDW 20.1 % (11.6-15.6); WHITE BLOOD COUNT 12.8 K/mm3 (4.0-10.0)
[2022-11-16 08:05] LABS: BLOOD UREA NITROGEN 34.4 mg/dL (7-18); CALCIUM 7.9 mg/dL (8.5-10.1); CREATININE 0.9 mg/dL (0.55-1.3); MAGNESIUM 1.8 mg/dL (1.8-2.4); PHOSPHOROUS 2.7 mg/dL (2.5-4.9); POTASSIUM 3.3 mmol/L (3.5-5.1)
[2022-11-16] MEDS: ENOXAPARIN NA (PORCINE) 120 MG/0.8 ML DISP.SYRIN SQ SCH ×2 (09:11→21:03)
[2022-11-16] MEDS: AZITHROMYCIN IVPB 500 MG/250 ML BAG IVPB SCH (09:11)
[2022-11-16] MEDS: PANTOPRAZOLE SODIUM 40 MG VIAL IVPUSH SCH (09:11)
[2022-11-16] MEDS: HALOPERIDOL LACTATE 5 MG/ML IM PRN ×2 (09:13→15:00)
[2022-11-16] MEDS: KCL 10 MEQ IVPB 10 MEQ/100 ML INFUS.BAG IVPB SCH ×2 (09:23→11:27)
[2022-11-16] MEDS: LEVOTHYROXINE SODIUM 100 MCG 5 ML VIAL IVPUSH SCH (09:23)
[2022-11-16] MEDS: EZETIMIBE 10 MG TABLET (FP) PO SCH (09:29)
[2022-11-16] MEDS: FUROSEMIDE 40 MG/4 ML INJECTABLE VIAL IVPUSH SCH (11:28)
[2022-11-16] MEDS: POTASSIUM CHLORIDE 20 MEQ in AMINO ACIDS 4.25%/D5W 1,000 ML IV SCH (12:07)
[2022-11-16] MEDS ORDERED: METOPROLOL TARTRATE 5 MG/5 ML VIAL IVPUSH PRN (12:42)
[2022-11-16] MEDS: MIDODRINE HCL 5 MG TABLET PO SCH ×2 (16:35→23:14)
[2022-11-16] MEDS: NOREPINEPHRINE BITARTRATE/D5W 8 MG/250 ML BAG IVPB SCH ×2 (19:25→20:12)
[2022-11-16] MEDS ORDERED: MAGNESIUM SULFATE IN WATER 2 GM/50 ML IVPB IVPB ONE (20:00)
[2022-11-16] MEDS ORDERED: ACETAMINOPHEN 1000 MG/100 ML BAG IVPB ONE (20:23)
[2022-11-16] MEDS: QUEtiapine FUMARATE 25 MG TABLET PO SCH ×2 (20:26→22:54)
[2022-11-16] MEDS: ALBUTEROL SO4 2.5/IPRATROPIUM 0.5 INH SOL 3 ML VIAL.NEB. NEB PRN (20:41)
[2022-11-16] MEDS ORDERED: QUEtiapine FUMARATE 25 MG TABLET PO SCH ×2 (21:00→22:00)
[2022-11-16] MEDS ORDERED: INSULIN (NOVOLOG) ASPART 100 UNITS/ML 10ML VIAL ONE (21:01)
[2022-11-16] MEDS: CHLORHEXIDINE GLUCONATE 4% CLEANSER FOR DECOLONIZATION TP SCH (21:03)
[2022-11-16] MEDS ORDERED: NYSTATIN POWDER 100,000 UNITS/GM - 15 GM TOPICAL POWDER TP SCH (23:15)
[2022-11-17] MEDS: MICONAZOLE NITRATE 71 GM POWDER TP SCH ×3 (00:24→21:38)
[2022-11-17] MEDS: MEROPENEM 500 MG in DEXTROSE 5%-WATER 100 ML IVPB SCH ×3 (01:23→17:20)
[2022-11-17] MEDS: METOPROLOL TARTRATE 5 MG/5 ML VIAL IVPUSH SCH ×4 (05:51→23:25)
[2022-11-17] MEDS: INSULIN SLIDING SCALE (NOVOLOG) 1 VIAL SQ SCH ×4 (06:03→21:37)
[2022-11-17] MEDS ORDERED: BISACODYL 10 MG SUPP.RECT PR PRN (06:17)
[2022-11-17] MEDS: ALBUTEROL SO4 2.5/IPRATROPIUM 0.5 INH SOL 3 ML VIAL.NEB. NEB PRN (07:55)
[2022-11-17 08:00] LABS: HEMATOCRIT 24.2 % (32.4-45.2); HEMOGLOBIN 7.6 GM/dL (10.7-15.3); MCHC 31.4 g/dl (32.0-36.0); MEAN CELL VOLUME 89.3 fl (80-96); MEAN PLT VOLUME 8.7 fl (7.5-11.1); PLATELET COUNT 112 10^3/uL (134-434); RBC 2.71 M/mm3 (3.60-5.2); RDW 19.6 % (11.6-15.6); WHITE BLOOD COUNT 10.9 K/mm3 (4.0-10.0)
[2022-11-17] MEDS ORDERED: NOREPINEPHRINE BITARTRATE 4,000 MCG in DEXTROSE 5%-WATER - 496 ML IV SCH (08:30)
[2022-11-17 09:09] LABS: BLOOD UREA NITROGEN 34.8 mg/dL (7-18); CALCIUM 7.9 mg/dL (8.5-10.1); CREATININE 1.1 mg/dL (0.55-1.3); MAGNESIUM 1.9 mg/dL (1.8-2.4); PHOSPHOROUS 2.7 mg/dL (2.5-4.9); POTASSIUM 3.8 mmol/L (3.5-5.1)
[2022-11-17] MEDS: FUROSEMIDE 40 MG/4 ML INJECTABLE VIAL IVPUSH SCH (09:29)
[2022-11-17] MEDS: MIDODRINE HCL 5 MG TABLET PO SCH ×3 (09:29→21:20)
[2022-11-17] MEDS: AZITHROMYCIN IVPB 500 MG/250 ML BAG IVPB SCH (09:30)
[2022-11-17] MEDS: EZETIMIBE 10 MG TABLET (FP) PO SCH (09:31)
[2022-11-17] MEDS: ENOXAPARIN NA (PORCINE) 120 MG/0.8 ML DISP.SYRIN SQ SCH ×2 (09:31→21:21)
[2022-11-17] MEDS: LEVOTHYROXINE SODIUM 100 MCG 5 ML VIAL IVPUSH SCH (09:31)
[2022-11-17] MEDS: PANTOPRAZOLE SODIUM 40 MG VIAL IVPUSH SCH (09:32)
[2022-11-17] MEDS: QUEtiapine FUMARATE 25 MG TABLET PO SCH (09:33)
[2022-11-17] MEDS: DEXMEDETOMIDINE PREMIX 400 MCG/100 ML BAG IVPB SCH (10:15)
[2022-11-17] MEDS ORDERED: INSULIN (NOVOLOG) ASPART 100 UNITS/ML 10ML VIAL ONE ×2 (11:39→17:14)
[2022-11-17] MEDS ORDERED: QUEtiapine FUMARATE 25 MG TABLET PO PRN ×4 (12:32→20:00)
[2022-11-17] MEDS: POTASSIUM CHLORIDE 20 MEQ in AMINO ACIDS 4.25%/D5W 1,000 ML IV SCH (14:36)
[2022-11-17] MEDS: QUEtiapine FUMARATE 25 MG TABLET PO PRN (17:20)
[2022-11-17] MEDS: LORazepam 1 MG TABLET PO SCH (21:20)
[2022-11-17] MEDS: CHLORHEXIDINE GLUCONATE 4% CLEANSER FOR DECOLONIZATION TP SCH (21:20)
[2022-11-18] MEDS: MEROPENEM 500 MG in DEXTROSE 5%-WATER 100 ML IVPB SCH ×3 (01:19→17:27)
[2022-11-18] MEDS: METOPROLOL TARTRATE 5 MG/5 ML VIAL IVPUSH SCH (05:14)
[2022-11-18] MEDS: MIDODRINE HCL 5 MG TABLET PO SCH ×3 (05:15→21:24)
[2022-11-18] MEDS: QUEtiapine FUMARATE 25 MG TABLET PO PRN ×2 (06:04→21:24)
[2022-11-18] MEDS: INSULIN SLIDING SCALE (NOVOLOG) 1 VIAL SQ SCH ×4 (06:23→21:54)
[2022-11-18 07:35] LABS: HEMATOCRIT 24.8 % (32.4-45.2); HEMOGLOBIN 7.6 GM/dL (10.7-15.3); MCH 27.5 pg (25.7-33.7); MCHC 30.6 g/dl (32.0-36.0); MEAN PLT VOLUME 9.8 fl (7.5-11.1); PLATELET COUNT 143 10^3/uL (134-434); RBC 2.75 M/mm3 (3.60-5.2); RDW 20.3 % (11.6-15.6)
[2022-11-18] MEDS ORDERED: METOPROLOL TARTRATE 5 MG/5 ML VIAL IVPUSH PRN (07:40)
[2022-11-18 07:43] LABS: POTASSIUM 3.5 mmol/L (3.5-5.1)
[2022-11-18 07:49] LABS: CALCIUM 7.9 mg/dL (8.5-10.1)
[2022-11-18 07:50] LABS: ALBUMIN 1.9 g/dl (3.4-5.0); BLOOD UREA NITROGEN 35.9 mg/dL (7-18); MAGNESIUM 1.7 mg/dL (1.8-2.4)
[2022-11-18 07:53] LABS: CREATININE 1.1 mg/dL (0.55-1.3); PHOSPHOROUS 2.4 mg/dL (2.5-4.9)
[2022-11-18 07:54] LABS: TOT PROT 4.1 g/dl (6.4-8.2)
[2022-11-18 07:55] LABS: BILIRUBIN,TOTAL 0.8 mg/dL (0.2-1)
[2022-11-18] MEDS ORDERED: POTASSIUM PHOSPHATE 15 MM in SODIUM CHLORIDE 100 ML IVPB ONE (08:09)
[2022-11-18] MEDS ORDERED: MAGNESIUM SULF 50% (8.12 MEQ/2 ML-1 GM VIAL) IVPB ONE (08:13)
[2022-11-18 08:49] LABS: ANISOCYTOSIS 1+; MACROCYTOSIS 1+
[2022-11-18] MEDS: AZITHROMYCIN IVPB 500 MG/250 ML BAG IVPB SCH (09:43)
[2022-11-18] MEDS: LORazepam 1 MG TABLET PO SCH ×2 (09:44→21:24)
[2022-11-18] MEDS: FUROSEMIDE 40 MG/4 ML INJECTABLE VIAL IVPUSH SCH (09:44)
[2022-11-18] MEDS: PANTOPRAZOLE SODIUM 40 MG VIAL IVPUSH SCH (09:44)
[2022-11-18] MEDS: EZETIMIBE 10 MG TABLET (FP) PO SCH (09:44)
[2022-11-18] MEDS: ENOXAPARIN NA (PORCINE) 120 MG/0.8 ML DISP.SYRIN SQ SCH ×2 (09:44→21:24)
[2022-11-18] MEDS: POTASSIUM CHLORIDE 20 MEQ in AMINO ACIDS 4.25%/D5W 1,000 ML IV SCH ×2 (09:46→15:00)
[2022-11-18] MEDS: LEVOTHYROXINE SODIUM 100 MCG 5 ML VIAL IVPUSH SCH (10:21)
[2022-11-18] MEDS ORDERED: ACETAMINOPHEN 325 MG TABLET (FP) PO PRN ×2 (11:15→11:28)
[2022-11-18] MEDS: MICONAZOLE NITRATE 71 GM POWDER TP SCH ×2 (11:32→21:47)
[2022-11-18] MEDS ORDERED: INSULIN (NOVOLOG) ASPART 100 UNITS/ML 10ML VIAL ONE ×3 (11:37→21:52)
[2022-11-18] MEDS: MULTIVIT INJ. ADULT COMBO WITH VIT K 1 COMBO 10 ML VIAL IV SCH (15:00)
[2022-11-18] MEDS: CHLORHEXIDINE GLUCONATE 4% CLEANSER FOR DECOLONIZATION TP SCH (21:25)
[2022-11-18] MEDS: FAT EMUL/SOY/MCT/OLIV/FISH OIL 250 ML IV SCH (21:25)
[2022-11-18 21:50] LABS: EPI CELLS 24 /uL (0-25.1); HYALINE CASTS 1 /uL (0-3.1); PH,URINE 5.5 (5.0-8.0); URINE APPEARANCE CLEAR; URINE BACTERIA 206 /uL (0-1359); URINE BILIRUBIN 1+ (NEGATIVE); URINE COLOR DK YELLOW; URINE GLUCOSE (UA) NEGATIVE (NEGATIVE); URINE KETONE TRACE (NEGATIVE); URINE LEUK ESTERASE 1+ (NEGATIVE); URINE NITRITE NEGATIVE (NEGATIVE); URINE PROTEIN 1+ (NEGATIVE); URINE WBC 94 /uL (0-25.8)
[2022-11-18 21:51] LABS: URINE RBC 54.6 /uL (0-23.9)
[2022-11-18] MEDS ORDERED: SMOFLIPID - FAT EMUL/SOY/MCT/OLIV/FISH OIL 250 ML EMULSION IV SCH (22:00)
[2022-11-19] MEDS: MEROPENEM 500 MG in DEXTROSE 5%-WATER 100 ML IVPB SCH ×3 (01:15→17:02)
[2022-11-19] MEDS: MIDODRINE HCL 5 MG TABLET PO SCH ×3 (05:11→21:40)
[2022-11-19] MEDS ORDERED: INSULIN (NOVOLOG) ASPART 100 UNITS/ML 10ML VIAL ONE ×3 (06:17→16:50)
[2022-11-19] MEDS: INSULIN SLIDING SCALE (NOVOLOG) 1 VIAL SQ SCH ×4 (06:19→21:39)
[2022-11-19 07:22] LABS: HEMATOCRIT 23.2 % (32.4-45.2); HEMOGLOBIN 7.1 GM/dL (10.7-15.3); MCH 27.9 pg (25.7-33.7); MCHC 30.4 g/dl (32.0-36.0); MEAN CELL VOLUME 91.5 fl (80-96); MEAN PLT VOLUME 9.7 fl (7.5-11.1); PLATELET COUNT 134 10^3/uL (134-434); RBC 2.53 M/mm3 (3.60-5.2); RDW 20.4 % (11.6-15.6); WHITE BLOOD COUNT 21.6 K/mm3 (4.0-10.0)
[2022-11-19 07:40] LABS: POTASSIUM 3.4 mmol/L (3.5-5.1)
[2022-11-19 07:46] LABS: ALBUMIN 1.8 g/dl (3.4-5.0); CALCIUM 7.8 mg/dL (8.5-10.1)
[2022-11-19 07:47] LABS: BLOOD UREA NITROGEN 43.5 mg/dL (7-18); MAGNESIUM 1.7 mg/dL (1.8-2.4)
[2022-11-19 07:49] LABS: CREATININE 1.3 mg/dL (0.55-1.3); PHOSPHOROUS 3.2 mg/dL (2.5-4.9)
[2022-11-19 07:51] LABS: BILIRUBIN,TOTAL 0.8 mg/dL (0.2-1); TOT PROT 4.1 g/dl (6.4-8.2)
[2022-11-19 09:35] LABS: ANISOCYTOSIS 0; MACROCYTOSIS 1+
[2022-11-19] MEDS: ENOXAPARIN NA (PORCINE) 120 MG/0.8 ML DISP.SYRIN SQ SCH ×2 (09:45→21:39)
[2022-11-19] MEDS: EZETIMIBE 10 MG TABLET (FP) PO SCH (09:45)
[2022-11-19] MEDS: FUROSEMIDE 40 MG/4 ML INJECTABLE VIAL IVPUSH SCH (09:45)
[2022-11-19] MEDS: LORazepam 1 MG TABLET PO SCH ×2 (09:45→21:40)
[2022-11-19] MEDS: MICONAZOLE NITRATE 71 GM POWDER TP SCH ×2 (09:46→21:41)
[2022-11-19] MEDS: PANTOPRAZOLE SODIUM 40 MG VIAL IVPUSH SCH (09:46)
[2022-11-19] MEDS: AZITHROMYCIN IVPB 500 MG/250 ML BAG IVPB SCH (09:46)
[2022-11-19] MEDS: LEVOTHYROXINE SODIUM 100 MCG 5 ML VIAL IVPUSH SCH (09:48)
[2022-11-19] MEDS: KCL 10 MEQ IVPB 10 MEQ/100 ML INFUS.BAG IVPB SCH ×3 (09:54→14:01)
[2022-11-19] MEDS ORDERED: MULTIVIT INJ. ADULT COMBO WITH VIT K 1 COMBO 10 ML VIAL IV SCH (10:00)
[2022-11-19] MEDS: QUEtiapine FUMARATE 25 MG TABLET PO PRN (10:13)
[2022-11-19] MEDS: dilTIAZem HCL 30 MG TABLET PO SCH ×3 (13:00→23:02)
[2022-11-19] MEDS: POTASSIUM CHLORIDE 20 MEQ in AMINO ACIDS 4.25%/D5W 1,000 ML IV SCH (14:01)
[2022-11-19] MEDS: MULTIVIT INJ. ADULT COMBO WITH VIT K 1 COMBO 10 ML VIAL IV SCH (15:12)
[2022-11-19] MEDS: INSULIN (LEVEMIR) 100 UNITS/ML UNITS SQ SCH (21:39)
[2022-11-19] MEDS: FAT EMUL/SOY/MCT/OLIV/FISH OIL 250 ML IV SCH (21:41)
[2022-11-19] MEDS: CHLORHEXIDINE GLUCONATE 4% CLEANSER FOR DECOLONIZATION TP SCH (21:41)
[2022-11-20] MEDS: MEROPENEM 500 MG in DEXTROSE 5%-WATER 100 ML IVPB SCH ×3 (01:04→17:17)
[2022-11-20] MEDS: dilTIAZem HCL 30 MG TABLET PO SCH ×5 (05:19→23:02)
[2022-11-20] MEDS: MIDODRINE HCL 5 MG TABLET PO SCH ×4 (05:19→21:09)
[2022-11-20] MEDS: INSULIN SLIDING SCALE (NOVOLOG) 1 VIAL SQ SCH ×4 (06:02→21:10)
[2022-11-20 07:29] LABS: HEMATOCRIT 21.1 % (32.4-45.2); MCH 28.2 pg (25.7-33.7); MEAN CELL VOLUME 90.8 fl (80-96); MEAN PLT VOLUME 9.4 fl (7.5-11.1); PLATELET COUNT 120 10^3/uL (134-434); RBC 2.32 M/mm3 (3.60-5.2); RDW 20.4 % (11.6-15.6); WHITE BLOOD COUNT 19.1 K/mm3 (4.0-10.0)
[2022-11-20 07:33] LABS: HEMOGLOBIN 6.5 GM/dL (10.7-15.3)
[2022-11-20 08:01] LABS: BLOOD UREA NITROGEN 43.9 mg/dL (7-18); CALCIUM 7.9 mg/dL (8.5-10.1); CREATININE 1.3 mg/dL (0.55-1.3); MAGNESIUM 1.7 mg/dL (1.8-2.4); POTASSIUM 3.5 mmol/L (3.5-5.1)
[2022-11-20] MEDS: PANTOPRAZOLE SODIUM 40 MG VIAL IVPUSH SCH (09:48)
[2022-11-20] MEDS: ENOXAPARIN NA (PORCINE) 120 MG/0.8 ML DISP.SYRIN SQ SCH ×2 (09:48→21:09)
[2022-11-20] MEDS: LEVOTHYROXINE SODIUM 100 MCG 5 ML VIAL IVPUSH SCH (09:48)
[2022-11-20] MEDS: AZITHROMYCIN IVPB 500 MG/250 ML BAG IVPB SCH (09:49)
[2022-11-20] MEDS: MICONAZOLE NITRATE 71 GM POWDER TP SCH ×2 (09:49→21:10)
[2022-11-20] MEDS: EZETIMIBE 10 MG TABLET (FP) PO SCH (09:49)
[2022-11-20] MEDS: FUROSEMIDE 40 MG/4 ML INJECTABLE VIAL IVPUSH SCH (09:49)
[2022-11-20] MEDS ORDERED: INSULIN (NOVOLOG) ASPART 100 UNITS/ML 10ML VIAL ONE ×3 (11:51→20:46)
[2022-11-20] MEDS: LORazepam 1 MG TABLET PO SCH ×3 (11:57→22:03)
[2022-11-20] MEDS: POTASSIUM CHLORIDE 20 MEQ in AMINO ACIDS 4.25%/D5W 1,000 ML IV SCH (14:07)
[2022-11-20] MEDS: QUEtiapine FUMARATE 25 MG TABLET PO PRN (14:07)
[2022-11-20] MEDS: MULTIVIT INJ. ADULT COMBO WITH VIT K 1 COMBO 10 ML VIAL IV SCH (14:07)
[2022-11-20] MEDS: INSULIN (LEVEMIR) 100 UNITS/ML UNITS SQ SCH (21:09)
[2022-11-20] MEDS: FAT EMUL/SOY/MCT/OLIV/FISH OIL 250 ML IV SCH (21:10)
[2022-11-20] MEDS: CHLORHEXIDINE GLUCONATE 4% CLEANSER FOR DECOLONIZATION TP SCH (21:10)
[2022-11-21] MEDS: MEROPENEM 500 MG in DEXTROSE 5%-WATER 100 ML IVPB SCH ×2 (01:38→10:02)
[2022-11-21] MEDS: MIDODRINE HCL 5 MG TABLET PO SCH ×3 (05:09→21:34)
[2022-11-21] MEDS: QUEtiapine FUMARATE 25 MG TABLET PO PRN (05:09)
[2022-11-21] MEDS: dilTIAZem HCL 30 MG TABLET PO SCH ×4 (05:09→23:04)
[2022-11-21] MEDS: INSULIN SLIDING SCALE (NOVOLOG) 1 VIAL SQ SCH ×4 (06:09→21:35)
[2022-11-21 07:03] LABS: HEMATOCRIT 23.8 % (32.4-45.2); HEMOGLOBIN 7.5 GM/dL (10.7-15.3); MCH 27.9 pg (25.7-33.7); MCHC 31.5 g/dl (32.0-36.0); MEAN CELL VOLUME 88.6 fl (80-96); MEAN PLT VOLUME 9.4 fl (7.5-11.1); PLATELET COUNT 111 10^3/uL (134-434); RBC 2.68 M/mm3 (3.60-5.2); RDW 20.3 % (11.6-15.6); WHITE BLOOD COUNT 11.9 K/mm3 (4.0-10.0)
[2022-11-21 08:42] LABS: POTASSIUM 3.5 mmol/L (3.5-5.1)
[2022-11-21 08:44] LABS: CALCIUM 8.3 mg/dL (8.5-10.1); MAGNESIUM 1.5 mg/dL (1.8-2.4)
[2022-11-21 08:45] LABS: BLOOD UREA NITROGEN 46.6 mg/dL (7-18)
[2022-11-21 08:47] LABS: CREATININE 1.2 mg/dL (0.55-1.3); PHOSPHOROUS 2.8 mg/dL (2.5-4.9)
[2022-11-21] MEDS ORDERED: MAGNESIUM 2GM/50ML STERILE WATER IVPB IVPB ONE (09:15)
[2022-11-21] MEDS: PANTOPRAZOLE SODIUM 40 MG VIAL IVPUSH SCH (10:01)
[2022-11-21] MEDS: EZETIMIBE 10 MG TABLET (FP) PO SCH (10:01)
[2022-11-21] MEDS: LORazepam 1 MG TABLET PO SCH ×2 (10:01→21:34)
[2022-11-21] MEDS: LEVOTHYROXINE SODIUM 100 MCG 5 ML VIAL IVPUSH SCH (10:01)
[2022-11-21] MEDS: FUROSEMIDE 40 MG/4 ML INJECTABLE VIAL IVPUSH SCH (10:01)
[2022-11-21] MEDS: ENOXAPARIN NA (PORCINE) 120 MG/0.8 ML DISP.SYRIN SQ SCH ×2 (10:02→21:35)
[2022-11-21] MEDS: MICONAZOLE NITRATE 71 GM POWDER TP SCH ×2 (10:02→21:35)
[2022-11-21] MEDS: AZITHROMYCIN IVPB 500 MG/250 ML BAG IVPB SCH (10:02)
[2022-11-21] MEDS ORDERED: INSULIN (NOVOLOG) ASPART 100 UNITS/ML 10ML VIAL ONE ×2 (12:07→20:59)
[2022-11-21] MEDS: MULTIVIT INJ. ADULT COMBO WITH VIT K 1 COMBO 10 ML VIAL IV SCH (15:08)
[2022-11-21] MEDS: POTASSIUM CHLORIDE 20 MEQ in AMINO ACIDS 4.25%/D5W 1,000 ML IV SCH (15:08)
[2022-11-21] MEDS: INSULIN (LEVEMIR) 100 UNITS/ML UNITS SQ SCH (21:35)
[2022-11-21] MEDS: CHLORHEXIDINE GLUCONATE 4% CLEANSER FOR DECOLONIZATION TP SCH (21:36)
[2022-11-21] MEDS: FAT EMUL/SOY/MCT/OLIV/FISH OIL 250 ML IV SCH (21:36)
[2022-11-22] MEDS: MIDODRINE HCL 5 MG TABLET PO SCH ×3 (05:36→21:10)
[2022-11-22] MEDS: dilTIAZem HCL 30 MG TABLET PO SCH ×4 (05:36→23:49)
[2022-11-22] MEDS: INSULIN SLIDING SCALE (NOVOLOG) 1 VIAL SQ SCH ×4 (06:02→21:13)
[2022-11-22] MEDS ORDERED: INSULIN (NOVOLOG) ASPART 100 UNITS/ML 10ML VIAL ONE ×3 (06:08→17:07)
[2022-11-22 06:59] LABS: HEMATOCRIT 23.7 % (32.4-45.2); HEMOGLOBIN 7.5 GM/dL (10.7-15.3); MCH 28.4 pg (25.7-33.7); MCHC 31.8 g/dl (32.0-36.0); MEAN CELL VOLUME 89.4 fl (80-96); MEAN PLT VOLUME 8.6 fl (7.5-11.1); PLATELET COUNT 105 10^3/uL (134-434); RBC 2.65 M/mm3 (3.60-5.2); RDW 20.6 % (11.6-15.6); WHITE BLOOD COUNT 9.9 K/mm3 (4.0-10.0)
[2022-11-22 07:05] LABS: POTASSIUM 3.3 mmol/L (3.5-5.1)
[2022-11-22 07:09] LABS: CALCIUM 8.3 mg/dL (8.5-10.1)
[2022-11-22 07:10] LABS: ALBUMIN 1.9 g/dl (3.4-5.0); BLOOD UREA NITROGEN 45.6 mg/dL (7-18); MAGNESIUM 1.7 mg/dL (1.8-2.4)
[2022-11-22 07:13] LABS: CREATININE 1.2 mg/dL (0.55-1.3); PHOSPHOROUS 2.5 mg/dL (2.5-4.9)
[2022-11-22 07:14] LABS: BILIRUBIN,TOTAL 0.6 mg/dL (0.2-1); TOT PROT 4.8 g/dl (6.4-8.2)
[2022-11-22] MEDS: PANTOPRAZOLE SODIUM 40 MG VIAL IVPUSH SCH (09:02)
[2022-11-22] MEDS: MICONAZOLE NITRATE 71 GM POWDER TP SCH ×2 (09:02→23:48)
[2022-11-22] MEDS: LEVOTHYROXINE SODIUM 100 MCG 5 ML VIAL IVPUSH SCH (09:02)
[2022-11-22] MEDS: LORazepam 1 MG TABLET PO SCH ×2 (09:02→21:08)
[2022-11-22] MEDS: ENOXAPARIN NA (PORCINE) 120 MG/0.8 ML DISP.SYRIN SQ SCH (09:02)
[2022-11-22] MEDS: EZETIMIBE 10 MG TABLET (FP) PO SCH (09:02)
[2022-11-22] MEDS: FUROSEMIDE 40 MG/4 ML INJECTABLE VIAL IVPUSH SCH (09:02)
[2022-11-22 09:12] LABS: ANISOCYTOSIS 1+; MACROCYTOSIS 0
[2022-11-22] MEDS ORDERED: MAGNESIUM SULFATE IN WATER 2 GM/50 ML IVPB IVPB ONE (09:30)
[2022-11-22] MEDS: KCL 10 MEQ IVPB 10 MEQ/100 ML INFUS.BAG IVPB SCH ×2 (10:19→12:44)
[2022-11-22] MEDS ORDERED: BISACODYL 10 MG SUPP.RECT PR PRN (11:49)
[2022-11-22] MEDS ORDERED: POTASSIUM CHLORIDE 20 MEQ in AMINO ACIDS 4.25%/D5W 1,000 ML IV SCH (12:02)
[2022-11-22] MEDS: MULTIVIT INJ. ADULT COMBO WITH VIT K 1 COMBO 10 ML VIAL IV SCH (12:44)
[2022-11-22] MEDS: AMINO ACIDS/PROTEIN HYDROLYS 30 ML LIQUID.PKT PO SCH (17:10)
[2022-11-22] MEDS: FAT EMUL/SOY/MCT/OLIV/FISH OIL 250 ML IV SCH (21:08)
[2022-11-22] MEDS: APIXABAN 5 MG TABLET PO SCH (21:09)
[2022-11-22] MEDS: CHLORHEXIDINE GLUCONATE 4% CLEANSER FOR DECOLONIZATION TP SCH (21:09)
[2022-11-22] MEDS: ACETAMINOPHEN 325 MG TABLET (FP) PO PRN (21:10)
[2022-11-22] MEDS: INSULIN (LEVEMIR) 100 UNITS/ML UNITS SQ SCH (21:13)
[2022-11-23] MEDS: INSULIN SLIDING SCALE (NOVOLOG) 1 VIAL SQ SCH ×4 (06:07→21:24)
[2022-11-23] MEDS: dilTIAZem HCL 30 MG TABLET PO SCH ×3 (06:07→17:06)
[2022-11-23] MEDS: MIDODRINE HCL 5 MG TABLET PO SCH ×3 (06:07→21:21)
[2022-11-23 07:28] LABS: HEMATOCRIT 23.8 % (32.4-45.2); HEMOGLOBIN 8.1 GM/dL (10.7-15.3); MCH 30.6 pg (25.7-33.7); MCHC 34.1 g/dl (32.0-36.0); MEAN CELL VOLUME 89.9 fl (80-96); MEAN PLT VOLUME 8.7 fl (7.5-11.1); PLATELET COUNT 104 10^3/uL (134-434); RBC 2.65 M/mm3 (3.60-5.2); RDW 21.1 % (11.6-15.6); WHITE BLOOD COUNT 7.6 K/mm3 (4.0-10.0)
[2022-11-23 07:57] LABS: BLOOD UREA NITROGEN 43.5 mg/dL (7-18); CALCIUM 7.9 mg/dL (8.5-10.1); CREATININE 1.1 mg/dL (0.55-1.3); MAGNESIUM 1.9 mg/dL (1.8-2.4); POTASSIUM 3.9 mmol/L (3.5-5.1)
[2022-11-23] MEDS: AMINO ACIDS/PROTEIN HYDROLYS 30 ML LIQUID.PKT PO SCH ×2 (09:06→16:40)
[2022-11-23] MEDS: PANTOPRAZOLE SODIUM 40 MG VIAL IVPUSH SCH (09:07)
[2022-11-23] MEDS: EZETIMIBE 10 MG TABLET (FP) PO SCH (09:07)
[2022-11-23] MEDS: ACETAMINOPHEN 325 MG TABLET (FP) PO PRN (09:07)
[2022-11-23] MEDS: QUEtiapine FUMARATE 25 MG TABLET PO PRN (09:07)
[2022-11-23] MEDS: LORazepam 1 MG TABLET PO SCH ×2 (09:07→21:22)
[2022-11-23] MEDS: APIXABAN 5 MG TABLET PO SCH ×2 (09:07→21:21)
[2022-11-23] MEDS: FUROSEMIDE 40 MG/4 ML INJECTABLE VIAL IVPUSH SCH (09:07)
[2022-11-23] MEDS: MICONAZOLE NITRATE 71 GM POWDER TP SCH ×2 (09:08→21:23)
[2022-11-23] MEDS: MULTIVIT INJ. ADULT COMBO WITH VIT K 1 COMBO 10 ML VIAL IV SCH ×2 (10:23→11:19)
[2022-11-23] MEDS ORDERED: INSULIN (NOVOLOG) ASPART 100 UNITS/ML 10ML VIAL ONE (10:28)
[2022-11-23] MEDS: LORazepam 2 MG/ML SDV VIAL IVPB PRN (13:59)
[2022-11-23] MEDS: LEVOTHYROXINE SODIUM 100 MCG 5 ML VIAL IVPUSH SCH (16:41)
[2022-11-23] MEDS ORDERED: ALBUTEROL SO4 2.5/IPRATROPIUM 0.5 INH SOL 3 ML VIAL.NEB. NEB ONE (16:47)
[2022-11-23] MEDS: CHLORHEXIDINE GLUCONATE 4% CLEANSER FOR DECOLONIZATION TP SCH (21:13)
[2022-11-23] MEDS: FAT EMUL/SOY/MCT/OLIV/FISH OIL 250 ML IV SCH (21:14)
[2022-11-23] MEDS: INSULIN (LEVEMIR) 100 UNITS/ML UNITS SQ SCH (21:22)
[2022-11-24] MEDS: dilTIAZem HCL 30 MG TABLET PO SCH ×5 (01:28→23:02)
[2022-11-24] MEDS: MIDODRINE HCL 5 MG TABLET PO SCH ×3 (06:31→22:02)
[2022-11-24] MEDS: INSULIN SLIDING SCALE (NOVOLOG) 1 VIAL SQ SCH ×4 (06:31→22:03)
[2022-11-24 07:53] LABS: POTASSIUM 3.8 mmol/L (3.5-5.1)
[2022-11-24 07:56] LABS: BLOOD UREA NITROGEN 47.5 mg/dL (7-18); MAGNESIUM 1.8 mg/dL (1.8-2.4)
[2022-11-24 07:57] LABS: CALCIUM 8.6 mg/dL (8.5-10.1)
[2022-11-24 08:00] LABS: CREATININE 1.1 mg/dL (0.55-1.3)
[2022-11-24 08:01] LABS: BILIRUBIN,TOTAL 0.6 mg/dL (0.2-1); TOT PROT 4.6 g/dl (6.4-8.2)
[2022-11-24] MEDS: LORazepam 1 MG TABLET PO SCH ×2 (10:00→22:02)
[2022-11-24] MEDS: ACETAMINOPHEN 325 MG TABLET (FP) PO PRN ×2 (10:00→22:04)
[2022-11-24] MEDS: APIXABAN 5 MG TABLET PO SCH ×2 (10:00→22:03)
[2022-11-24] MEDS: EZETIMIBE 10 MG TABLET (FP) PO SCH (10:00)
[2022-11-24] MEDS: QUEtiapine FUMARATE 25 MG TABLET PO PRN (10:00)
[2022-11-24] MEDS: AMINO ACIDS/PROTEIN HYDROLYS 30 ML LIQUID.PKT PO SCH ×2 (10:01→16:58)
[2022-11-24] MEDS: FUROSEMIDE 40 MG/4 ML INJECTABLE VIAL IVPUSH SCH (10:01)
[2022-11-24] MEDS: PANTOPRAZOLE SODIUM 40 MG VIAL IVPUSH SCH (10:01)
[2022-11-24] MEDS: MICONAZOLE NITRATE 71 GM POWDER TP SCH ×2 (10:01→22:03)
[2022-11-24] MEDS: LEVOTHYROXINE SODIUM 100 MCG 5 ML VIAL IVPUSH SCH (10:02)
[2022-11-24] MEDS ORDERED: INSULIN (NOVOLOG) ASPART 100 UNITS/ML 10ML VIAL ONE (11:28)
[2022-11-24] MEDS: MULTIVIT INJ. ADULT COMBO WITH VIT K 1 COMBO 10 ML VIAL IV SCH (11:29)
[2022-11-24] MEDS: INSULIN (LEVEMIR) 100 UNITS/ML UNITS SQ SCH (22:02)
[2022-11-24] MEDS: CHLORHEXIDINE GLUCONATE 4% CLEANSER FOR DECOLONIZATION TP SCH (22:03)
[2022-11-25] MEDS: INSULIN SLIDING SCALE (NOVOLOG) 1 VIAL SQ SCH ×4 (06:24→20:59)
[2022-11-25] MEDS: dilTIAZem HCL 30 MG TABLET PO SCH ×4 (06:25→23:08)
[2022-11-25] MEDS: MIDODRINE HCL 5 MG TABLET PO SCH ×3 (06:25→21:00)
[2022-11-25] MEDS: APIXABAN 5 MG TABLET PO SCH ×2 (10:12→21:02)
[2022-11-25] MEDS: LEVOTHYROXINE SODIUM 100 MCG 5 ML VIAL IVPUSH SCH (10:12)
[2022-11-25] MEDS: AMINO ACIDS/PROTEIN HYDROLYS 30 ML LIQUID.PKT PO SCH ×2 (10:12→17:12)
[2022-11-25] MEDS: PANTOPRAZOLE SODIUM 40 MG VIAL IVPUSH SCH (10:12)
[2022-11-25] MEDS: FUROSEMIDE 40 MG/4 ML INJECTABLE VIAL IVPUSH SCH (10:12)
[2022-11-25] MEDS: EZETIMIBE 10 MG TABLET (FP) PO SCH (10:13)
[2022-11-25] MEDS: MICONAZOLE NITRATE 71 GM POWDER TP SCH ×2 (11:00→21:01)
[2022-11-25] MEDS: LORazepam 1 MG TABLET PO SCH ×2 (11:00→21:01)
[2022-11-25] MEDS: AMINO ACIDS 4.25%/D5W 1,000 ML IV SCH (14:44)
[2022-11-25] MEDS: MULTIVIT INJ. ADULT COMBO WITH VIT K 1 COMBO 10 ML VIAL IV SCH (17:00)
[2022-11-25] MEDS: LORazepam 2 MG/ML SDV VIAL IVPB PRN ×2 (18:17→23:52)
[2022-11-25] MEDS ORDERED: INSULIN (NOVOLOG) ASPART 100 UNITS/ML 10ML VIAL ONE (20:48)
[2022-11-25] MEDS: INSULIN (LEVEMIR) 100 UNITS/ML UNITS SQ SCH (20:59)
[2022-11-25] MEDS: CHLORHEXIDINE GLUCONATE 4% CLEANSER FOR DECOLONIZATION TP SCH (21:01)
[2022-11-26] MEDS: MIDODRINE HCL 5 MG TABLET PO SCH ×3 (06:02→21:29)
[2022-11-26] MEDS: dilTIAZem HCL 30 MG TABLET PO SCH ×4 (06:03→23:05)
[2022-11-26] MEDS: INSULIN SLIDING SCALE (NOVOLOG) 1 VIAL SQ SCH ×4 (06:04→21:30)
[2022-11-26] MEDS ORDERED: INSULIN (NOVOLOG) ASPART 100 UNITS/ML 10ML VIAL ONE ×2 (06:04→21:26)
[2022-11-26 07:05] LABS: HEMATOCRIT 26.4 % (32.4-45.2); HEMOGLOBIN 8.5 GM/dL (10.7-15.3); MCH 29.2 pg (25.7-33.7); MCHC 32.1 g/dl (32.0-36.0); MEAN CELL VOLUME 90.9 fl (80-96); MEAN PLT VOLUME 8.2 fl (7.5-11.1); PLATELET COUNT 123 10^3/uL (134-434); RBC 2.91 M/mm3 (3.60-5.2); RDW 21.3 % (11.6-15.6); WHITE BLOOD COUNT 8.1 K/mm3 (4.0-10.0)
[2022-11-26 07:22] LABS: BLOOD UREA NITROGEN 48.8 mg/dL (7-18); CALCIUM 8.5 mg/dL (8.5-10.1)
[2022-11-26 07:24] LABS: CREATININE 1.1 mg/dL (0.55-1.3)
[2022-11-26 07:26] LABS: BILIRUBIN,TOTAL 0.6 mg/dL (0.2-1); TOT PROT 4.6 g/dl (6.4-8.2)
[2022-11-26] MEDS: AMINO ACIDS/PROTEIN HYDROLYS 30 ML LIQUID.PKT PO SCH ×2 (08:59→17:02)
[2022-11-26] MEDS: LORazepam 1 MG TABLET PO SCH ×2 (09:00→21:29)
[2022-11-26] MEDS: FUROSEMIDE 40 MG/4 ML INJECTABLE VIAL IVPUSH SCH (09:01)
[2022-11-26] MEDS: PANTOPRAZOLE SODIUM 40 MG VIAL IVPUSH SCH (09:01)
[2022-11-26] MEDS: APIXABAN 5 MG TABLET PO SCH ×2 (09:01→21:29)
[2022-11-26] MEDS: EZETIMIBE 10 MG TABLET (FP) PO SCH (09:01)
[2022-11-26] MEDS: MICONAZOLE NITRATE 71 GM POWDER TP SCH ×2 (09:01→21:30)
[2022-11-26] MEDS: LEVOTHYROXINE SODIUM 100 MCG 5 ML VIAL IVPUSH SCH (09:01)
[2022-11-26] MEDS ORDERED: TAMSULOSIN HCL 0.4 MG CAP PO ONE (10:22)
[2022-11-26 10:32] LABS: ANISOCYTOSIS 3+; MACROCYTOSIS 3+
[2022-11-26] MEDS: AMINO ACIDS 4.25%/D5W 1,000 ML IV SCH (12:27)
[2022-11-26] MEDS: MULTIVIT INJ. ADULT COMBO WITH VIT K 1 COMBO 10 ML VIAL IV SCH (13:20)
[2022-11-26] MEDS: QUEtiapine FUMARATE 25 MG TABLET PO PRN (21:29)
[2022-11-26] MEDS: INSULIN (LEVEMIR) 100 UNITS/ML UNITS SQ SCH (21:30)
[2022-11-26] MEDS: CHLORHEXIDINE GLUCONATE 4% CLEANSER FOR DECOLONIZATION TP SCH (21:30)
[2022-11-27] MEDS: dilTIAZem HCL 30 MG TABLET PO SCH ×4 (05:31→23:00)
[2022-11-27] MEDS: MIDODRINE HCL 5 MG TABLET PO SCH ×3 (05:31→21:35)
[2022-11-27] MEDS: INSULIN SLIDING SCALE (NOVOLOG) 1 VIAL SQ SCH ×4 (06:08→21:24)
[2022-11-27] MEDS: AMINO ACIDS/PROTEIN HYDROLYS 30 ML LIQUID.PKT PO SCH ×3 (09:00→17:57)
[2022-11-27] MEDS: TAMSULOSIN HCL 0.4 MG CAP PO SCH ×2 (09:30→10:13)
[2022-11-27] MEDS ORDERED: PANTOPRAZOLE SODIUM 40 MG VIAL IVPUSH SCH (10:00)
[2022-11-27] MEDS: LORazepam 1 MG TABLET PO SCH ×3 (10:12→22:56)
[2022-11-27] MEDS: FUROSEMIDE 40 MG/4 ML INJECTABLE VIAL IVPUSH SCH (10:12)
[2022-11-27] MEDS: PANTOPRAZOLE SODIUM 40 MG VIAL IVPUSH SCH (10:12)
[2022-11-27] MEDS: APIXABAN 5 MG TABLET PO SCH ×3 (10:13→21:35)
[2022-11-27] MEDS: LEVOTHYROXINE SODIUM 100 MCG 5 ML VIAL IVPUSH SCH (10:13)
[2022-11-27] MEDS: EZETIMIBE 10 MG TABLET (FP) PO SCH ×2 (10:13→11:00)
[2022-11-27] MEDS: MICONAZOLE NITRATE 71 GM POWDER TP SCH ×2 (10:14→21:23)
[2022-11-27] MEDS: AMINO ACIDS 4.25%/D5W 1,000 ML IV SCH (14:37)
[2022-11-27] MEDS: MULTIVIT INJ. ADULT COMBO WITH VIT K 1 COMBO 10 ML VIAL IV SCH (14:37)
[2022-11-27] MEDS: FAT EMULSION/OLIVE/SOY/PHOSPHO 250 ML IV SCH (21:17)
[2022-11-27] MEDS: CHLORHEXIDINE GLUCONATE 4% CLEANSER FOR DECOLONIZATION TP SCH (21:17)
[2022-11-27] MEDS: INSULIN (LEVEMIR) 100 UNITS/ML UNITS SQ SCH (21:32)
[2022-11-27] MEDS ORDERED: FAT EMULSION/OLIVE/SOY (CLINOLIPID) 250 ML EMULSION IV SCH (22:00)
[2022-11-28] MEDS: MIDODRINE HCL 5 MG TABLET PO SCH ×3 (05:03→22:17)
[2022-11-28] MEDS: dilTIAZem HCL 30 MG TABLET PO SCH ×4 (05:04→23:56)
[2022-11-28] MEDS: INSULIN SLIDING SCALE (NOVOLOG) 1 VIAL SQ SCH ×4 (06:36→22:18)
[2022-11-28 07:31] LABS: HEMATOCRIT 24.8 % (32.4-45.2); MCH 29.3 pg (25.7-33.7); MCHC 32.2 g/dl (32.0-36.0); MEAN PLT VOLUME 8.7 fl (7.5-11.1); PLATELET COUNT 144 10^3/uL (134-434); RBC 2.73 M/mm3 (3.60-5.2); RDW 23.3 % (11.6-15.6); WHITE BLOOD COUNT 6.4 K/mm3 (4.0-10.0)
[2022-11-28 07:46] LABS: POTASSIUM 3.4 mmol/L (3.5-5.1)
[2022-11-28 07:49] LABS: ALBUMIN 1.9 g/dl (3.4-5.0); BLOOD UREA NITROGEN 53.2 mg/dL (7-18)
[2022-11-28 07:50] LABS: CALCIUM 7.9 mg/dL (8.5-10.1)
[2022-11-28 07:52] LABS: CREATININE 1.1 mg/dL (0.55-1.3)
[2022-11-28 07:53] LABS: BILIRUBIN,TOTAL 0.6 mg/dL (0.2-1); TOT PROT 4.4 g/dl (6.4-8.2)
[2022-11-28] MEDS: LORazepam 1 MG TABLET PO SCH ×2 (09:54→22:19)
[2022-11-28] MEDS: LEVOTHYROXINE SODIUM 100 MCG 5 ML VIAL IVPUSH SCH (09:54)
[2022-11-28] MEDS: EZETIMIBE 10 MG TABLET (FP) PO SCH (09:54)
[2022-11-28] MEDS: PANTOPRAZOLE SODIUM 40 MG VIAL IVPUSH SCH (09:54)
[2022-11-28] MEDS: ACETAMINOPHEN 325 MG TABLET (FP) PO PRN ×2 (09:55→18:16)
[2022-11-28] MEDS: APIXABAN 5 MG TABLET PO SCH ×2 (09:55→22:20)
[2022-11-28] MEDS: FUROSEMIDE 40 MG/4 ML INJECTABLE VIAL IVPUSH SCH (09:56)
[2022-11-28] MEDS: MICONAZOLE NITRATE 71 GM POWDER TP SCH ×2 (09:56→22:20)
[2022-11-28] MEDS: AMINO ACIDS/PROTEIN HYDROLYS 30 ML LIQUID.PKT PO SCH ×2 (09:56→17:04)
[2022-11-28] MEDS: TAMSULOSIN HCL 0.4 MG CAP PO SCH (09:56)
[2022-11-28] MEDS: MULTIVIT INJ. ADULT COMBO WITH VIT K 1 COMBO 10 ML VIAL IV SCH (13:57)
[2022-11-28] MEDS: POTASSIUM CHLORIDE ORAL LIQUID 20 MEQ/15 ML PO ONE ×2 (13:57→14:16)
[2022-11-28] MEDS: POTASSIUM CHLORIDE 20 MEQ in AMINO ACIDS 4.25%/D5W 1,000 ML IV SCH ×2 (13:59→14:14)
[2022-11-28] MEDS: INSULIN (LEVEMIR) 100 UNITS/ML UNITS SQ SCH (22:18)
[2022-11-28] MEDS: CHLORHEXIDINE GLUCONATE 4% CLEANSER FOR DECOLONIZATION TP SCH (22:19)
[2022-11-28] MEDS: FAT EMULSION/OLIVE/SOY/PHOSPHO 250 ML IV SCH (22:19)
[2022-11-29] MEDS: dilTIAZem HCL 30 MG TABLET PO SCH ×3 (05:37→18:07)
[2022-11-29] MEDS: MIDODRINE HCL 5 MG TABLET PO SCH ×3 (05:37→21:09)
[2022-11-29] MEDS: INSULIN SLIDING SCALE (NOVOLOG) 1 VIAL SQ SCH ×4 (06:06→21:28)
[2022-11-29] MEDS: AMINO ACIDS/PROTEIN HYDROLYS 30 ML LIQUID.PKT PO SCH ×2 (07:58→16:58)
[2022-11-29] MEDS: TAMSULOSIN HCL 0.4 MG CAP PO SCH (07:59)
[2022-11-29 08:14] LABS: HEMATOCRIT 23.1 % (32.4-45.2); HEMOGLOBIN 7.4 GM/dL (10.7-15.3); MCH 29.1 pg (25.7-33.7); MCHC 32.1 g/dl (32.0-36.0); MEAN CELL VOLUME 90.6 fl (80-96); PLATELET COUNT 143 10^3/uL (134-434); RBC 2.55 M/mm3 (3.60-5.2); WHITE BLOOD COUNT 6.3 K/mm3 (4.0-10.0)
[2022-11-29 08:28] LABS: POTASSIUM 3.2 mmol/L (3.5-5.1)
[2022-11-29 08:30] LABS: CALCIUM 7.8 mg/dL (8.5-10.1)
[2022-11-29 08:31] LABS: ALBUMIN 1.8 g/dl (3.4-5.0); BLOOD UREA NITROGEN 57.3 mg/dL (7-18); MAGNESIUM 1.4 mg/dL (1.8-2.4)
[2022-11-29 08:34] LABS: CREATININE 1.2 mg/dL (0.55-1.3)
[2022-11-29 08:35] LABS: TOT PROT 4.4 g/dl (6.4-8.2)
[2022-11-29 08:36] LABS: BILIRUBIN,TOTAL 0.4 mg/dL (0.2-1)
[2022-11-29] MEDS: LORazepam 1 MG TABLET PO SCH ×2 (09:29→21:08)
[2022-11-29] MEDS: EZETIMIBE 10 MG TABLET (FP) PO SCH (09:29)
[2022-11-29] MEDS: FUROSEMIDE 40 MG/4 ML INJECTABLE VIAL IVPUSH SCH (09:30)
[2022-11-29] MEDS: PANTOPRAZOLE SODIUM 40 MG VIAL IVPUSH SCH (09:30)
[2022-11-29] MEDS: APIXABAN 5 MG TABLET PO SCH ×2 (09:30→21:08)
[2022-11-29] MEDS: MICONAZOLE NITRATE 71 GM POWDER TP SCH ×2 (10:09→21:10)
[2022-11-29 10:24] LABS: ANISOCYTOSIS 2+; MACROCYTOSIS 1+
[2022-11-29] MEDS: LEVOTHYROXINE SODIUM 100 MCG 5 ML VIAL IVPUSH SCH (12:59)
[2022-11-29] MEDS ORDERED: MAGNESIUM 2GM/50ML STERILE WATER IVPB IVPB ONE ×2 (13:00→15:00)
[2022-11-29] MEDS: KCL 10 MEQ IVPB 10 MEQ/100 ML INFUS.BAG IVPB SCH ×3 (13:36→16:16)
[2022-11-29] MEDS: POTASSIUM CHLORIDE ORAL LIQUID 20 MEQ/15 ML PO ONE ×2 (14:03→14:08)
[2022-11-29] MEDS: MULTIVIT INJ. ADULT COMBO WITH VIT K 1 COMBO 10 ML VIAL IV SCH (18:05)
[2022-11-29] MEDS: POTASSIUM CHLORIDE 20 MEQ in AMINO ACIDS 4.25%/D5W 1,000 ML IV SCH (18:06)
[2022-11-29] MEDS: FAT EMULSION/OLIVE/SOY/PHOSPHO 250 ML IV SCH (21:09)
[2022-11-29] MEDS: CHLORHEXIDINE GLUCONATE 4% CLEANSER FOR DECOLONIZATION TP SCH (21:09)
[2022-11-29] MEDS: INSULIN (LEVEMIR) 100 UNITS/ML UNITS SQ SCH (21:27)
[2022-11-29] MEDS: ACETAMINOPHEN 325 MG TABLET (FP) PO PRN (21:37)
[2022-11-30] MEDS: dilTIAZem HCL 30 MG TABLET PO SCH ×5 (00:21→23:14)
[2022-11-30] MEDS: QUEtiapine FUMARATE 25 MG TABLET PO PRN (03:37)
[2022-11-30] MEDS: MIDODRINE HCL 5 MG TABLET PO SCH ×3 (05:55→21:21)
[2022-11-30] MEDS: ACETAMINOPHEN 325 MG TABLET (FP) PO PRN ×2 (05:56→21:10)
[2022-11-30] MEDS: INSULIN SLIDING SCALE (NOVOLOG) 1 VIAL SQ SCH ×4 (06:07→21:21)
[2022-11-30] MEDS: LORazepam 1 MG TABLET PO SCH ×2 (10:14→21:20)
[2022-11-30] MEDS: APIXABAN 5 MG TABLET PO SCH ×2 (10:14→21:11)
[2022-11-30] MEDS: EZETIMIBE 10 MG TABLET (FP) PO SCH (10:15)
[2022-11-30] MEDS: FUROSEMIDE 40 MG/4 ML INJECTABLE VIAL IVPUSH SCH (10:15)
[2022-11-30] MEDS: AMINO ACIDS/PROTEIN HYDROLYS 30 ML LIQUID.PKT PO SCH ×2 (10:45→18:00)
[2022-11-30] MEDS: TAMSULOSIN HCL 0.4 MG CAP PO SCH (10:45)
[2022-11-30] MEDS: MICONAZOLE NITRATE 71 GM POWDER TP SCH ×2 (10:51→21:20)
[2022-11-30] MEDS: PANTOPRAZOLE SODIUM 40 MG VIAL IVPUSH SCH (10:52)
[2022-11-30] MEDS ORDERED: LEVOTHYROXINE NA 88 MCG TABLET (FP) PO ONE (11:01)
[2022-11-30] MEDS: LEVOTHYROXINE SODIUM 100 MCG 5 ML VIAL IVPUSH SCH (11:06)
[2022-11-30] MEDS: POTASSIUM CHLORIDE 20 MEQ in AMINO ACIDS 4.25%/D5W 1,000 ML IV SCH (15:10)
[2022-11-30] MEDS: MULTIVIT INJ. ADULT COMBO WITH VIT K 1 COMBO 10 ML VIAL IV SCH (15:10)
[2022-11-30] MEDS ORDERED: QUEtiapine FUMARATE 25 MG TABLET PO PRN (17:10)
[2022-11-30] MEDS: FAT EMULSION/OLIVE/SOY/PHOSPHO 250 ML IV SCH (21:11)
[2022-11-30] MEDS: CHLORHEXIDINE GLUCONATE 4% CLEANSER FOR DECOLONIZATION TP SCH (21:16)
[2022-11-30] MEDS: INSULIN (LEVEMIR) 100 UNITS/ML UNITS SQ SCH (21:20)
[2022-12-01] MEDS: ACETAMINOPHEN 325 MG TABLET (FP) PO PRN (03:04)
[2022-12-01] MEDS: LEVOTHYROXINE NA 88 MCG TABLET (FP) PO SCH (06:05)
[2022-12-01] MEDS: MIDODRINE HCL 5 MG TABLET PO SCH ×3 (06:06→22:29)
[2022-12-01] MEDS: dilTIAZem HCL 30 MG TABLET PO SCH ×3 (06:06→17:33)
[2022-12-01] MEDS: INSULIN SLIDING SCALE (NOVOLOG) 1 VIAL SQ SCH ×4 (06:14→22:32)
[2022-12-01] MEDS: EZETIMIBE 10 MG TABLET (FP) PO SCH (10:26)
[2022-12-01] MEDS: AMINO ACIDS/PROTEIN HYDROLYS 30 ML LIQUID.PKT PO SCH ×2 (10:26→17:33)
[2022-12-01] MEDS: TAMSULOSIN HCL 0.4 MG CAP PO SCH (10:26)
[2022-12-01] MEDS: APIXABAN 5 MG TABLET PO SCH ×2 (10:30→22:26)
[2022-12-01] MEDS: LORazepam 1 MG TABLET PO SCH ×2 (10:30→22:05)
[2022-12-01] MEDS: PANTOPRAZOLE SODIUM 40 MG VIAL IVPUSH SCH (10:30)
[2022-12-01] MEDS: FUROSEMIDE 40 MG/4 ML INJECTABLE VIAL IVPUSH SCH (10:31)
[2022-12-01] MEDS: MICONAZOLE NITRATE 71 GM POWDER TP SCH ×2 (10:31→22:32)
[2022-12-01 12:34] LABS: HEMOGLOBIN 7.2 GM/dL (10.7-15.3); MCH 28.3 pg (25.7-33.7); MCHC 31.4 g/dl (32.0-36.0); MEAN CELL VOLUME 90.3 fl (80-96); MEAN PLT VOLUME 7.5 fl (7.5-11.1); PLATELET COUNT 146 10^3/uL (134-434); RBC 2.55 M/mm3 (3.60-5.2); RDW 24.6 % (11.6-15.6); WHITE BLOOD COUNT 5.7 K/mm3 (4.0-10.0)
[2022-12-01 12:51] LABS: POTASSIUM 3.6 mmol/L (3.5-5.1)
[2022-12-01 12:52] LABS: BLOOD UREA NITROGEN 60.6 mg/dL (7-18)
[2022-12-01 12:53] LABS: ALBUMIN 1.9 g/dl (3.4-5.0); CALCIUM 8.3 mg/dL (8.5-10.1)
[2022-12-01 12:56] LABS: CREATININE 1.2 mg/dL (0.55-1.3)
[2022-12-01 12:58] LABS: BILIRUBIN,TOTAL 0.4 mg/dL (0.2-1); TOT PROT 4.8 g/dl (6.4-8.2)
[2022-12-01 12:59] LABS: ANISOCYTOSIS 1+; MACROCYTOSIS 0
[2022-12-01] MEDS: POTASSIUM CHLORIDE 20 MEQ in AMINO ACIDS 4.25%/D5W 1,000 ML IV SCH (15:50)
[2022-12-01] MEDS: MULTIVIT INJ. ADULT COMBO WITH VIT K 1 COMBO 10 ML VIAL IV SCH (15:51)
[2022-12-01] MEDS: FAT EMULSION/OLIVE/SOY/PHOSPHO 250 ML IV SCH (22:30)
[2022-12-01] MEDS: INSULIN (LEVEMIR) 100 UNITS/ML UNITS SQ SCH (22:31)
[2022-12-01] MEDS: CHLORHEXIDINE GLUCONATE 4% CLEANSER FOR DECOLONIZATION TP SCH (22:31)
[2022-12-02] MEDS: dilTIAZem HCL 30 MG TABLET PO SCH ×5 (00:32→23:27)
[2022-12-02] MEDS: LEVOTHYROXINE NA 88 MCG TABLET (FP) PO SCH (06:45)
[2022-12-02] MEDS: MIDODRINE HCL 5 MG TABLET PO SCH ×3 (06:46→22:03)
[2022-12-02] MEDS: INSULIN SLIDING SCALE (NOVOLOG) 1 VIAL SQ SCH ×4 (06:50→22:49)
[2022-12-02] MEDS: APIXABAN 5 MG TABLET PO SCH ×2 (09:21→22:02)
[2022-12-02] MEDS: FUROSEMIDE 40 MG/4 ML INJECTABLE VIAL IVPUSH SCH (09:21)
[2022-12-02] MEDS: TAMSULOSIN HCL 0.4 MG CAP PO SCH (09:21)
[2022-12-02] MEDS: PANTOPRAZOLE SODIUM 40 MG VIAL IVPUSH SCH (09:21)
[2022-12-02] MEDS: AMINO ACIDS/PROTEIN HYDROLYS 30 ML LIQUID.PKT PO SCH ×2 (09:21→17:06)
[2022-12-02] MEDS: EZETIMIBE 10 MG TABLET (FP) PO SCH (09:21)
[2022-12-02] MEDS: MICONAZOLE NITRATE 71 GM POWDER TP SCH ×2 (09:22→22:03)
[2022-12-02 09:55] LABS: POTASSIUM 3.7 mmol/L (3.5-5.1)
[2022-12-02 10:07] LABS: BLOOD UREA NITROGEN 63.3 mg/dL (7-18); CALCIUM 7.6 mg/dL (8.5-10.1)
[2022-12-02 10:08] LABS: MAGNESIUM 1.4 mg/dL (1.8-2.4)
[2022-12-02 10:10] LABS: CREATININE 1.3 mg/dL (0.55-1.3)
[2022-12-02 10:11] LABS: TOT PROT 3.2 g/dl (6.4-8.2)
[2022-12-02 10:14] LABS: BILIRUBIN,TOTAL 0.3 mg/dL (0.2-1)
[2022-12-02] MEDS: LORazepam 1 MG TABLET PO SCH ×2 (10:20→22:01)
[2022-12-02 10:30] LABS: ALBUMIN 1.3 g/dl (3.4-5.0)
[2022-12-02] MEDS: MULTIVIT INJ. ADULT COMBO WITH VIT K 1 COMBO 10 ML VIAL IV SCH (14:52)
[2022-12-02] MEDS: POTASSIUM CHLORIDE 20 MEQ in AMINO ACIDS 4.25%/D5W 1,000 ML IV SCH (14:54)
[2022-12-02] MEDS: CHLORHEXIDINE GLUCONATE 4% CLEANSER FOR DECOLONIZATION TP SCH (22:02)
[2022-12-02] MEDS: FAT EMULSION/OLIVE/SOY/PHOSPHO 250 ML IV SCH (22:02)
[2022-12-02] MEDS: ACETAMINOPHEN 325 MG TABLET (FP) PO PRN (22:03)
[2022-12-02] MEDS: INSULIN (LEVEMIR) 100 UNITS/ML UNITS SQ SCH (22:49)
[2022-12-03] MEDS: MIDODRINE HCL 5 MG TABLET PO SCH ×3 (06:19→22:07)
[2022-12-03] MEDS: dilTIAZem HCL 30 MG TABLET PO SCH ×3 (06:19→18:22)
[2022-12-03] MEDS: LEVOTHYROXINE NA 88 MCG TABLET (FP) PO SCH (06:19)
[2022-12-03] MEDS: INSULIN SLIDING SCALE (NOVOLOG) 1 VIAL SQ SCH ×4 (06:19→22:05)
[2022-12-03 11:16] LABS: HEMATOCRIT 20.8 % (32.4-45.2); MCH 29.2 pg (25.7-33.7); MEAN CELL VOLUME 91.3 fl (80-96); MEAN PLT VOLUME 7.8 fl (7.5-11.1); PLATELET COUNT 148 10^3/uL (134-434); RBC 2.28 M/mm3 (3.60-5.2); RDW 24.4 % (11.6-15.6); WHITE BLOOD COUNT 6.5 K/mm3 (4.0-10.0)
[2022-12-03] MEDS: FUROSEMIDE 40 MG/4 ML INJECTABLE VIAL IVPUSH SCH (11:18)
[2022-12-03] MEDS: PANTOPRAZOLE SODIUM 40 MG VIAL IVPUSH SCH (11:18)
[2022-12-03] MEDS: AMINO ACIDS/PROTEIN HYDROLYS 30 ML LIQUID.PKT PO SCH ×3 (11:19→18:24)
[2022-12-03] MEDS: TAMSULOSIN HCL 0.4 MG CAP PO SCH (11:19)
[2022-12-03] MEDS: EZETIMIBE 10 MG TABLET (FP) PO SCH (11:19)
[2022-12-03] MEDS: APIXABAN 5 MG TABLET PO SCH ×2 (11:19→22:05)
[2022-12-03 11:20] LABS: HEMOGLOBIN 6.7 GM/dL (10.7-15.3)
[2022-12-03] MEDS: LORazepam 1 MG TABLET PO SCH ×2 (11:31→22:04)
[2022-12-03 11:50] LABS: ANISOCYTOSIS 3+; MACROCYTOSIS 0; ROULEAU 1+; TARGET CELLS 1+
[2022-12-03 12:53] LABS: IRON SERUM 40 ug/dL (50-175); TOTAL IRON BINDING CAPACITY 294 ug/dL (250-450)
[2022-12-03 12:55] LABS: ALBUMIN 1.8 g/dl (3.4-5.0); BILIRUBIN,TOTAL 0.5 mg/dL (0.2-1); BLOOD UREA NITROGEN 65.5 mg/dL (7-18); CALCIUM 8.4 mg/dL (8.5-10.1); CREATININE 1.2 mg/dL (0.55-1.3); POTASSIUM 3.7 mmol/L (3.5-5.1); TOT PROT 4.7 g/dl (6.4-8.2)
[2022-12-03] MEDS: MULTIVIT INJ. ADULT COMBO WITH VIT K 1 COMBO 10 ML VIAL IV SCH (14:37)
[2022-12-03] MEDS: POTASSIUM CHLORIDE 20 MEQ in AMINO ACIDS 4.25%/D5W 1,000 ML IV SCH (14:38)
[2022-12-03] MEDS: ACETAMINOPHEN 325 MG TABLET (FP) PO PRN (14:49)
[2022-12-03] MEDS: MICONAZOLE NITRATE 71 GM POWDER TP SCH (18:24)
[2022-12-03] MEDS: FAT EMULSION/OLIVE/SOY/PHOSPHO 250 ML IV SCH (22:03)
[2022-12-03] MEDS: INSULIN (LEVEMIR) 100 UNITS/ML UNITS SQ SCH (22:04)
[2022-12-03 22:37] LABS: HEMATOCRIT 24.6 % (32.4-45.2); HEMOGLOBIN 7.9 GM/dL (10.7-15.3); MCH 29.4 pg (25.7-33.7); MCHC 32.4 g/dl (32.0-36.0); MEAN CELL VOLUME 90.9 fl (80-96); MEAN PLT VOLUME 7.8 fl (7.5-11.1); PLATELET COUNT 147 10^3/uL (134-434); RDW 22.8 % (11.6-15.6); WHITE BLOOD COUNT 7.3 K/mm3 (4.0-10.0)
[2022-12-04] MEDS: MICONAZOLE NITRATE 71 GM POWDER TP SCH ×3 (00:12→22:01)
[2022-12-04] MEDS: dilTIAZem HCL 30 MG TABLET PO SCH ×4 (00:14→18:15)
[2022-12-04] MEDS: ACETAMINOPHEN 325 MG TABLET (FP) PO PRN ×2 (04:48→15:11)
[2022-12-04] MEDS: MIDODRINE HCL 5 MG TABLET PO SCH ×3 (05:18→21:59)
[2022-12-04] MEDS: LEVOTHYROXINE NA 88 MCG TABLET (FP) PO SCH (06:04)
[2022-12-04] MEDS: INSULIN SLIDING SCALE (NOVOLOG) 1 VIAL SQ SCH ×4 (06:05→21:59)
[2022-12-04 09:42] LABS: HEMATOCRIT 24.7 % (32.4-45.2); HEMOGLOBIN 8.4 GM/dL (10.7-15.3); MCH 30.3 pg (25.7-33.7); MEAN CELL VOLUME 89.1 fl (80-96); MEAN PLT VOLUME 7.2 fl (7.5-11.1); PLATELET COUNT 153 10^3/uL (134-434); RBC 2.77 M/mm3 (3.60-5.2); RDW 22.4 % (11.6-15.6); WHITE BLOOD COUNT 8.7 K/mm3 (4.0-10.0)
[2022-12-04] MEDS: PANTOPRAZOLE SODIUM 40 MG VIAL IVPUSH SCH (09:56)
[2022-12-04] MEDS: FUROSEMIDE 40 MG/4 ML INJECTABLE VIAL IVPUSH SCH (09:56)
[2022-12-04] MEDS: AMINO ACIDS/PROTEIN HYDROLYS 30 ML LIQUID.PKT PO SCH ×3 (09:57→16:49)
[2022-12-04] MEDS: TAMSULOSIN HCL 0.4 MG CAP PO SCH (09:57)
[2022-12-04] MEDS: EZETIMIBE 10 MG TABLET (FP) PO SCH (09:57)
[2022-12-04] MEDS: APIXABAN 5 MG TABLET PO SCH ×2 (09:58→21:59)
[2022-12-04 10:04] LABS: POTASSIUM 3.6 mmol/L (3.5-5.1)
[2022-12-04 10:07] LABS: ALBUMIN 1.8 g/dl (3.4-5.0); BLOOD UREA NITROGEN 60.4 mg/dL (7-18)
[2022-12-04] MEDS: LORazepam 1 MG TABLET PO SCH ×2 (10:07→21:58)
[2022-12-04 10:10] LABS: CREATININE 1.2 mg/dL (0.55-1.3)
[2022-12-04 10:11] LABS: BILIRUBIN,TOTAL 0.3 mg/dL (0.2-1); TOT PROT 4.8 g/dl (6.4-8.2)
[2022-12-04 10:49] LABS: ANISOCYTOSIS 3+; MACROCYTOSIS 0; OVALOCYTE 1+
[2022-12-04] MEDS: POTASSIUM CHLORIDE 20 MEQ in AMINO ACIDS 4.25%/D5W 1,000 ML IV SCH (12:27)
[2022-12-04] MEDS: MULTIVIT INJ. ADULT COMBO WITH VIT K 1 COMBO 10 ML VIAL IV SCH (12:27)
[2022-12-04] MEDS: FAT EMULSION/OLIVE/SOY/PHOSPHO 250 ML IV SCH (21:58)
[2022-12-04] MEDS: INSULIN (LEVEMIR) 100 UNITS/ML UNITS SQ SCH (21:59)
[2022-12-04] MEDS: MIRTAZAPINE 15 MG TABLET (FP) PO SCH (21:59)
[2022-12-05] MEDS: dilTIAZem HCL 30 MG TABLET PO SCH ×5 (00:08→23:26)
[2022-12-05] MEDS: ACETAMINOPHEN 325 MG TABLET (FP) PO PRN ×2 (00:20→09:18)
[2022-12-05] MEDS: MIDODRINE HCL 5 MG TABLET PO SCH ×3 (05:22→22:04)
[2022-12-05] MEDS: METOPROLOL TARTRATE 5 MG/5 ML VIAL IVPUSH PRN (05:45)
[2022-12-05] MEDS: LEVOTHYROXINE NA 88 MCG TABLET (FP) PO SCH (06:02)
[2022-12-05] MEDS: INSULIN SLIDING SCALE (NOVOLOG) 1 VIAL SQ SCH ×4 (06:02→22:19)
[2022-12-05 07:52] LABS: HEMATOCRIT 25.8 % (32.4-45.2); HEMOGLOBIN 8.5 GM/dL (10.7-15.3); MCH 29.9 pg (25.7-33.7); MEAN CELL VOLUME 90.5 fl (80-96); PLATELET COUNT 172 10^3/uL (134-434); RBC 2.85 M/mm3 (3.60-5.2); RDW 22.5 % (11.6-15.6); WHITE BLOOD COUNT 12.1 K/mm3 (4.0-10.0)
[2022-12-05 08:20] LABS: POTASSIUM 3.7 mmol/L (3.5-5.1)
[2022-12-05 08:22] LABS: CALCIUM 7.7 mg/dL (8.5-10.1)
[2022-12-05 08:23] LABS: ALBUMIN 1.8 g/dl (3.4-5.0); BLOOD UREA NITROGEN 56.8 mg/dL (7-18)
[2022-12-05 08:26] LABS: CREATININE 1.2 mg/dL (0.55-1.3)
[2022-12-05 08:27] LABS: BILIRUBIN,TOTAL 0.4 mg/dL (0.2-1); TOT PROT 5.1 g/dl (6.4-8.2)
[2022-12-05 08:55] LABS: ANISOCYTOSIS 1+; MACROCYTOSIS 0
[2022-12-05] MEDS: AMINO ACIDS/PROTEIN HYDROLYS 30 ML LIQUID.PKT PO SCH ×4 (09:18→17:49)
[2022-12-05] MEDS: APIXABAN 5 MG TABLET PO SCH (09:18)
[2022-12-05] MEDS: FUROSEMIDE 40 MG/4 ML INJECTABLE VIAL IVPUSH SCH (09:18)
[2022-12-05] MEDS: TAMSULOSIN HCL 0.4 MG CAP PO SCH ×2 (09:18→09:29)
[2022-12-05] MEDS: PANTOPRAZOLE SODIUM 40 MG VIAL IVPUSH SCH (09:18)
[2022-12-05] MEDS: EZETIMIBE 10 MG TABLET (FP) PO SCH (09:18)
[2022-12-05] MEDS: MICONAZOLE NITRATE 71 GM POWDER TP SCH ×2 (09:19→22:24)
[2022-12-05] MEDS: LORazepam 1 MG TABLET PO SCH ×2 (09:28→22:05)
[2022-12-05 12:21] LABS: HEMATOCRIT 25.3 % (32.4-45.2); HEMOGLOBIN 8.4 GM/dL (10.7-15.3); MCH 29.4 pg (25.7-33.7); MCHC 33.2 g/dl (32.0-36.0); MEAN CELL VOLUME 88.7 fl (80-96); MEAN PLT VOLUME 7.2 fl (7.5-11.1); PLATELET COUNT 154 10^3/uL (134-434); RBC 2.85 M/mm3 (3.60-5.2); RDW 22.1 % (11.6-15.6)
[2022-12-05 12:43] LABS: ANISOCYTOSIS 2+; MACROCYTOSIS 0
[2022-12-05] MEDS: MULTIVIT INJ. ADULT COMBO WITH VIT K 1 COMBO 10 ML VIAL IV SCH (18:01)
[2022-12-05] MEDS: POTASSIUM CHLORIDE 20 MEQ in AMINO ACIDS 4.25%/D5W 1,000 ML IV SCH (18:01)
[2022-12-05] MEDS ORDERED: ACETAMINOPHEN 500 MG TABLET (FP) PO ONE (21:15)
[2022-12-05] MEDS: MIRTAZAPINE 15 MG TABLET (FP) PO SCH (22:03)
[2022-12-05] MEDS: FAT EMULSION/OLIVE/SOY/PHOSPHO 250 ML IV SCH (22:05)
[2022-12-05] MEDS: INSULIN (LEVEMIR) 100 UNITS/ML UNITS SQ SCH (22:20)
[2022-12-06 04:19] LABS: HIV INTERPRETATION NEGATIVE (NEGATIVE)
[2022-12-06] MEDS: MIDODRINE HCL 5 MG TABLET PO SCH ×3 (06:19→22:12)
[2022-12-06] MEDS: dilTIAZem HCL 30 MG TABLET PO SCH ×3 (06:19→17:01)
[2022-12-06] MEDS: LEVOTHYROXINE NA 88 MCG TABLET (FP) PO SCH (06:19)
[2022-12-06] MEDS: INSULIN SLIDING SCALE (NOVOLOG) 1 VIAL SQ SCH ×4 (06:22→22:14)
[2022-12-06 07:11] LABS: HEMATOCRIT 24.5 % (32.4-45.2); HEMOGLOBIN 8.1 GM/dL (10.7-15.3); MCH 29.9 pg (25.7-33.7); MCHC 32.9 g/dl (32.0-36.0); MEAN CELL VOLUME 90.7 fl (80-96); PLATELET COUNT 164 10^3/uL (134-434); RBC 2.71 M/mm3 (3.60-5.2); RDW 22.3 % (11.6-15.6); WHITE BLOOD COUNT 11.4 K/mm3 (4.0-10.0)
[2022-12-06 07:18] LABS: POTASSIUM 3.3 mmol/L (3.5-5.1)
[2022-12-06 07:22] LABS: ALBUMIN 1.6 g/dl (3.4-5.0); CALCIUM 7.8 mg/dL (8.5-10.1)
[2022-12-06 07:23] LABS: BLOOD UREA NITROGEN 57.1 mg/dL (7-18)
[2022-12-06 07:26] LABS: CREATININE 1.4 mg/dL (0.55-1.3)
[2022-12-06 07:27] LABS: TOT PROT 4.9 g/dl (6.4-8.2)
[2022-12-06 07:31] LABS: BILIRUBIN,TOTAL 0.4 mg/dL (0.2-1)
[2022-12-06 08:31] LABS: ANISOCYTOSIS 1+; MACROCYTOSIS 0
[2022-12-06] MEDS: AMINO ACIDS/PROTEIN HYDROLYS 30 ML LIQUID.PKT PO SCH ×3 (11:19→16:52)
[2022-12-06] MEDS: TAMSULOSIN HCL 0.4 MG CAP PO SCH (11:28)
[2022-12-06] MEDS: PANTOPRAZOLE SODIUM 40 MG VIAL IVPUSH SCH (11:28)
[2022-12-06] MEDS: FUROSEMIDE 40 MG/4 ML INJECTABLE VIAL IVPUSH SCH (11:28)
[2022-12-06] MEDS: LORazepam 1 MG TABLET PO SCH ×2 (11:28→22:12)
[2022-12-06] MEDS: EZETIMIBE 10 MG TABLET (FP) PO SCH (11:29)
[2022-12-06] MEDS: KCL 10 MEQ IVPB 10 MEQ/100 ML INFUS.BAG IVPB SCH ×3 (11:39→15:38)
[2022-12-06] MEDS: MICONAZOLE NITRATE 71 GM POWDER TP SCH ×2 (13:40→22:32)
[2022-12-06] MEDS: MULTIVIT INJ. ADULT COMBO WITH VIT K 1 COMBO 10 ML VIAL IV SCH (15:38)
[2022-12-06] MEDS: POTASSIUM CHLORIDE 20 MEQ in AMINO ACIDS 4.25%/D5W 1,000 ML IV SCH (15:50)
[2022-12-06] MEDS: ACETAMINOPHEN 325 MG TABLET (FP) PO PRN ×2 (16:51→22:13)
[2022-12-06] MEDS: MIRTAZAPINE 15 MG TABLET (FP) PO SCH (22:12)
[2022-12-06] MEDS: INSULIN (LEVEMIR) 100 UNITS/ML UNITS SQ SCH (22:13)
[2022-12-06] MEDS: FAT EMULSION/OLIVE/SOY/PHOSPHO 250 ML IV SCH (22:14)
[2022-12-07] MEDS: dilTIAZem HCL 30 MG TABLET PO SCH ×5 (00:05→23:41)
[2022-12-07] MEDS: MIDODRINE HCL 5 MG TABLET PO SCH ×3 (06:28→21:53)
[2022-12-07] MEDS: LEVOTHYROXINE NA 88 MCG TABLET (FP) PO SCH (06:30)
[2022-12-07] MEDS: INSULIN SLIDING SCALE (NOVOLOG) 1 VIAL SQ SCH ×4 (06:31→21:16)
[2022-12-07 09:15] LABS: ALBUMIN 1.6 g/dl (3.4-5.0); BILIRUBIN,TOTAL 0.4 mg/dL (0.2-1); BLOOD UREA NITROGEN 62.4 mg/dL (7-18); CREATININE 1.3 mg/dL (0.55-1.3)
[2022-12-07 09:18] LABS: HEMATOCRIT 24.6 % (32.4-45.2); HEMOGLOBIN 7.9 GM/dL (10.7-15.3); MCH 29.4 pg (25.7-33.7); MEAN CELL VOLUME 91.8 fl (80-96); MEAN PLT VOLUME 7.9 fl (7.5-11.1); PLATELET COUNT 171 10^3/uL (134-434); RBC 2.68 M/mm3 (3.60-5.2); RDW 22.1 % (11.6-15.6); WHITE BLOOD COUNT 11.5 K/mm3 (4.0-10.0)
[2022-12-07] MEDS ORDERED: LORazepam 1 MG TABLET PO PRN (10:03)
[2022-12-07 10:13] LABS: ANISOCYTOSIS 1+; MACROCYTOSIS 1+
[2022-12-07] MEDS: AMINO ACIDS/PROTEIN HYDROLYS 30 ML LIQUID.PKT PO SCH ×3 (10:17→18:18)
[2022-12-07] MEDS: FUROSEMIDE 40 MG/4 ML INJECTABLE VIAL IVPUSH SCH ×3 (10:18→18:18)
[2022-12-07] MEDS: PANTOPRAZOLE SODIUM 40 MG VIAL IVPUSH SCH (10:18)
[2022-12-07] MEDS: TAMSULOSIN HCL 0.4 MG CAP PO SCH (10:18)
[2022-12-07] MEDS: EZETIMIBE 10 MG TABLET (FP) PO SCH (10:18)
[2022-12-07] MEDS: MICONAZOLE NITRATE 71 GM POWDER TP SCH ×2 (10:45→21:16)
[2022-12-07] MEDS: LORazepam 1 MG TABLET PO SCH (11:08)
[2022-12-07] MEDS: MULTIVIT INJ. ADULT COMBO WITH VIT K 1 COMBO 10 ML VIAL IV SCH (15:17)
[2022-12-07] MEDS: POTASSIUM CHLORIDE 20 MEQ in AMINO ACIDS 4.25%/D5W 1,000 ML IV SCH (16:09)
[2022-12-07] MEDS: FAT EMULSION/OLIVE/SOY/PHOSPHO 250 ML IV SCH (21:15)
[2022-12-07] MEDS: INSULIN (LEVEMIR) 100 UNITS/ML UNITS SQ SCH (21:16)
[2022-12-07 21:42] LABS: ARTERIAL BLD GAS O2 SATURATION 93.8 % (95-98); ARTERIAL BLOOD GAS PO2 71.8 mmHg (80-100); ARTERIAL BLOOD GAS pH 7.369 (7.350-7.450)
[2022-12-07 21:43] LABS: ALLENS TEST POSITIVE
[2022-12-07] MEDS: MIRTAZAPINE 15 MG TABLET (FP) PO SCH (21:52)
[2022-12-07] MEDS: ALBUTEROL SO4 0.083% IH SOL 2.5 MG/3 ML VIAL.NEB. NEB PRN (22:31)
[2022-12-08] MEDS ORDERED: FUROSEMIDE 40 MG/4 ML INJECTABLE VIAL IVPUSH ONE (01:17)
[2022-12-08] MEDS: MIDODRINE HCL 5 MG TABLET PO SCH ×3 (06:04→22:16)
[2022-12-08] MEDS: INSULIN SLIDING SCALE (NOVOLOG) 1 VIAL SQ SCH ×4 (06:04→22:03)
[2022-12-08] MEDS: dilTIAZem HCL 30 MG TABLET PO SCH ×4 (06:04→23:26)
[2022-12-08] MEDS: FUROSEMIDE 40 MG/4 ML INJECTABLE VIAL IVPUSH SCH ×2 (06:04→13:23)
[2022-12-08] MEDS: LEVOTHYROXINE NA 88 MCG TABLET (FP) PO SCH (06:05)
[2022-12-08 08:48] LABS: HEMATOCRIT 26.2 % (32.4-45.2); HEMOGLOBIN 8.6 GM/dL (10.7-15.3); MCH 29.5 pg (25.7-33.7); MCHC 32.7 g/dl (32.0-36.0); MEAN CELL VOLUME 90.1 fl (80-96); MEAN PLT VOLUME 7.8 fl (7.5-11.1); PLATELET COUNT 181 10^3/uL (134-434); RBC 2.91 M/mm3 (3.60-5.2); RDW 21.3 % (11.6-15.6); WHITE BLOOD COUNT 12.8 K/mm3 (4.0-10.0)
[2022-12-08 09:03] LABS: POTASSIUM 3.8 mmol/L (3.5-5.1)
[2022-12-08 09:07] LABS: BLOOD UREA NITROGEN 63.2 mg/dL (7-18); CALCIUM 8.4 mg/dL (8.5-10.1)
[2022-12-08 09:08] LABS: ALBUMIN 1.6 g/dl (3.4-5.0); MAGNESIUM 1.2 mg/dL (1.8-2.4)
[2022-12-08 09:11] LABS: CREATININE 1.3 mg/dL (0.55-1.3)
[2022-12-08 09:12] LABS: BILIRUBIN,TOTAL 0.7 mg/dL (0.2-1); TOT PROT 5.1 g/dl (6.4-8.2)
[2022-12-08] MEDS: TAMSULOSIN HCL 0.4 MG CAP PO SCH (10:24)
[2022-12-08] MEDS: PANTOPRAZOLE SODIUM 40 MG VIAL IVPUSH SCH (10:24)
[2022-12-08] MEDS: EZETIMIBE 10 MG TABLET (FP) PO SCH (10:24)
[2022-12-08] MEDS: AMINO ACIDS/PROTEIN HYDROLYS 30 ML LIQUID.PKT PO SCH ×3 (10:24→17:44)
[2022-12-08] MEDS: MICONAZOLE NITRATE 71 GM POWDER TP SCH ×2 (10:24→22:20)
[2022-12-08] MEDS ORDERED: MAGNESIUM 2GM/50ML STERILE WATER IVPB IVPB ONE (12:00)
[2022-12-08] MEDS ORDERED: ACETAMINOPHEN 1000 MG/100 ML BAG IVPB PRN (13:44)
[2022-12-08] MEDS: LIDOCAINE 5% TOPICAL PATCH TP SCH (14:12)
[2022-12-08] MEDS: POTASSIUM CHLORIDE 20 MEQ in AMINO ACIDS 4.25%/D5W 1,000 ML IV SCH (16:27)
[2022-12-08] MEDS: MULTIVIT INJ. ADULT COMBO WITH VIT K 1 COMBO 10 ML VIAL IV SCH (16:28)
[2022-12-08] MEDS: MIRTAZAPINE 15 MG TABLET (FP) PO SCH (22:16)
[2022-12-08] MEDS: INSULIN (LEVEMIR) 100 UNITS/ML UNITS SQ SCH (22:17)
[2022-12-08] MEDS: FAT EMULSION/OLIVE/SOY/PHOSPHO 250 ML IV SCH (22:18)
[2022-12-08] MEDS: LIDOCAINE PATCH REMOVAL MC SCH (22:19)
[2022-12-08] MEDS: ALBUTEROL SO4 0.083% IH SOL 2.5 MG/3 ML VIAL.NEB. NEB PRN (22:49)
[2022-12-08 23:07] LABS: FIBROSIS SCORE. 0.33 (0.00-0.21); HCV ALPHA 2 MACRO CHART 225 mg/dL (110-276); NECRO.INFLAM ACT.SCORE 0.06 (0.00-0.17); NECROINFLAM. ACTIVITY GRADE A0-No activity (.)
[2022-12-09] MEDS: dilTIAZem HCL 30 MG TABLET PO SCH ×4 (05:26→23:24)
[2022-12-09] MEDS: FUROSEMIDE 40 MG/4 ML INJECTABLE VIAL IVPUSH SCH ×2 (05:27→15:09)
[2022-12-09] MEDS: MIDODRINE HCL 5 MG TABLET PO SCH ×3 (05:27→23:23)
[2022-12-09] MEDS: LEVOTHYROXINE NA 88 MCG TABLET (FP) PO SCH (06:02)
[2022-12-09] MEDS: INSULIN SLIDING SCALE (NOVOLOG) 1 VIAL SQ SCH ×4 (06:06→23:25)
[2022-12-09] MEDS: PANTOPRAZOLE 40 MG TABLET PO SCH (10:34)
[2022-12-09] MEDS: AMINO ACIDS/PROTEIN HYDROLYS 30 ML LIQUID.PKT PO SCH ×3 (10:34→17:43)
[2022-12-09] MEDS: LIDOCAINE 5% TOPICAL PATCH TP SCH (10:35)
[2022-12-09] MEDS: TAMSULOSIN HCL 0.4 MG CAP PO SCH (10:35)
[2022-12-09] MEDS: EZETIMIBE 10 MG TABLET (FP) PO SCH (10:35)
[2022-12-09] MEDS: MICONAZOLE NITRATE 71 GM POWDER TP SCH ×2 (10:46→23:28)
[2022-12-09] MEDS: MULTIVIT INJ. ADULT COMBO WITH VIT K 1 COMBO 10 ML VIAL IV SCH (13:05)
[2022-12-09] MEDS: MIRTAZAPINE 15 MG TABLET (FP) PO SCH (23:24)
[2022-12-09] MEDS: INSULIN (LEVEMIR) 100 UNITS/ML UNITS SQ SCH (23:26)
[2022-12-09] MEDS: LIDOCAINE PATCH REMOVAL MC SCH (23:27)
[2022-12-10 06:29] VITALS: TEMP 98.4
[2022-12-10] MEDS: FUROSEMIDE 40 MG/4 ML INJECTABLE VIAL IVPUSH SCH (07:01)
[2022-12-10] MEDS: LEVOTHYROXINE NA 88 MCG TABLET (FP) PO SCH (07:02)
[2022-12-10] MEDS: dilTIAZem HCL 30 MG TABLET PO SCH (07:02)
[2022-12-10] MEDS: MIDODRINE HCL 5 MG TABLET PO SCH ×2 (07:02→14:43)
[2022-12-10] MEDS: INSULIN SLIDING SCALE (NOVOLOG) 1 VIAL SQ SCH ×2 (07:08→11:31)
[2022-12-10] MEDS ORDERED: RAPID SEQUENCE INTUBATION KIT NR ONE (07:56)
[2022-12-10] MEDS: AMINO ACIDS/PROTEIN HYDROLYS 30 ML LIQUID.PKT PO SCH (08:56)
[2022-12-10] MEDS: TAMSULOSIN HCL 0.4 MG CAP PO SCH (08:57)
[2022-12-10] MEDS ORDERED: FUROSEMIDE 40 MG/4 ML INJECTABLE VIAL IVPUSH ONE (09:00)
[2022-12-10 09:03] LABS: ARTERIAL BLD GAS O2 SATURATION 96.7 % (95-98); ARTERIAL BLOOD GAS BASE EXCESS -1.4 mmol/L (-2-2); ARTERIAL BLOOD GAS PO2 105.2 mmHg (80-100); ARTERIAL BLOOD GAS pH 7.235 (7.350-7.450)
[2022-12-10 09:09] LABS: ALLENS TEST POSITIVE
[2022-12-10 09:10] LABS: VENT RATE 6
[2022-12-10 09:19] LABS: HEMATOCRIT 26.7 % (32.4-45.2); HEMOGLOBIN 8.3 GM/dL (10.7-15.3); MCH 28.6 pg (25.7-33.7); MCHC 31.1 g/dl (32.0-36.0); MEAN PLT VOLUME 7.7 fl (7.5-11.1); PLATELET COUNT 245 10^3/uL (134-434); RBC 2.91 M/mm3 (3.60-5.2); RDW 21.9 % (11.6-15.6); WHITE BLOOD COUNT 26.9 K/mm3 (4.0-10.0)
[2022-12-10] MEDS: LIDOCAINE 5% TOPICAL PATCH TP SCH (09:22)
[2022-12-10] MEDS: MICONAZOLE NITRATE 71 GM POWDER TP SCH (09:31)
[2022-12-10] MEDS: EZETIMIBE 10 MG TABLET (FP) PO SCH (09:32)
[2022-12-10] MEDS: PANTOPRAZOLE 40 MG TABLET PO SCH (09:32)
[2022-12-10 09:36] LABS: POTASSIUM 3.8 mmol/L (3.5-5.1)
[2022-12-10 09:39] LABS: BLOOD UREA NITROGEN 68.4 mg/dL (7-18); CALCIUM 8.8 mg/dL (8.5-10.1)
[2022-12-10 09:40] LABS: ALBUMIN 1.6 g/dl (3.4-5.0); MAGNESIUM 1.6 mg/dL (1.8-2.4)
[2022-12-10 09:43] LABS: CREATININE 1.7 mg/dL (0.55-1.3); PHOSPHOROUS 5.7 mg/dL (2.5-4.9)
[2022-12-10 09:44] LABS: BILIRUBIN,TOTAL 0.5 mg/dL (0.2-1); TOT PROT 5.6 g/dl (6.4-8.2)
[2022-12-10] MEDS ORDERED: ACETAMINOPHEN 1000 MG/100 ML BAG IVPB PRN (10:05)
[2022-12-10 10:27] LABS: ANISOCYTOSIS 2+; MACROCYTOSIS 0; OVALOCYTE 1+
[2022-12-10] MEDS ORDERED: MORPHINE SULFATE/0.9% NACL/PF 100 MG/100 ML BAG IVPB SCH (11:00)
[2022-12-10] MEDS: METOPROLOL TARTRATE 5 MG/5 ML VIAL IVPUSH PRN (12:26)
[2022-12-10 12:27] VITALS: BP 113/54; PULSE 138
[2022-12-10] MEDS: MULTIVIT INJ. ADULT COMBO WITH VIT K 1 COMBO 10 ML VIAL IV SCH (14:41)
[2022-12-10 15:49] VITALS: RESP 30
[2022-12-10] MEDS ORDERED: FUROSEMIDE 40 MG/4 ML INJECTABLE VIAL IVPUSH SCH (16:00)
[2022-12-10] MEDS ORDERED: INSULIN SLIDING SCALE (NOVOLOG) 1 VIAL SQ SCH (16:30)
[2022-12-11] MEDS ORDERED: LEVOTHYROXINE SODIUM 100 MCG 5 ML VIAL IVPUSH SCH (10:00)
== END 2022-12-10 20:30 | disposition expired | DRG 193 ==
LOC: JER 20:34 → JERBED 22:50 → J4W 11-08 03:50 → JICU 11-08 08:47 → J2W 11-21 17:53 → J4S 11-28 12:18 → UNDODISIN 12-10 20:30
PROVIDERS: ADMIT Internal Medicine; ATTEND Internal Medicine
PROC: 05HD33Z Insertion of Infusion Device into Right Cephalic Vein, Percutaneous Approach (ICD-10-PCS; principal; 2022-11-12)
PROC: B54MZZA Ultrasonography of Right Upper Extremity Veins, Guidance (ICD-10-PCS; 2022-11-12)
PROC: 30233N1 Transfusion of Nonautologous Red Blood Cells into Peripheral Vein, Percutaneous Approach (ICD-10-PCS; 2022-11-20)
DX: J18.9 Pneumonia, unspecified organism (principal); I50.33 Acute on chronic diastolic (congestive) heart failure; J96.21 Acute and chronic respiratory failure with hypoxia; J96.22 Acute and chronic respiratory failure with hypercapnia; I48.20 Chronic atrial fibrillation, unspecified; N39.0 Urinary tract infection, site not specified; Z68.43 Body mass index [BMI] 50.0-59.9, adult; J44.1 Chronic obstructive pulmonary disease with (acute) exacerbation; N17.9 Acute kidney failure, unspecified; E87.20 Acidosis, unspecified; J44.0 Chronic obstructive pulmonary disease with (acute) lower respiratory infection; E87.0 Hyperosmolality and hypernatremia; I13.0 Hypertensive heart and chronic kidney disease with heart failure and stage 1 through stage 4 chronic kidney disease, or unspecified chronic kidney disease; J98.11 Atelectasis; E87.1 Hypo-osmolality and hyponatremia; E66.01 Morbid (severe) obesity due to excess calories; E03.9 Hypothyroidism, unspecified; E11.22 Type 2 diabetes mellitus with diabetic chronic kidney disease; N18.9 Chronic kidney disease, unspecified; E78.5 Hyperlipidemia, unspecified; Z79.01 Long term (current) use of anticoagulants; Z79.4 Long term (current) use of insulin; D69.6 Thrombocytopenia, unspecified; R41.0 Disorientation, unspecified; D50.9 Iron deficiency anemia, unspecified
CPT/HCPCS: 0241U-QW; 36415; 36430; 36600; 71045-TC-FY; 80048; 80053; 81003; 82172; 82272; 82550; 82803; 82962; 82977; 83010; 83540; 83550; 83605; 83735; 83880; 83883; 84100; 84439; 84443; 84460; 84484; 85025; 85027; 85610; 85730; 86704; 86705; 86850; 86900; 86901; 86922; 87040; 87086; 87186; 87340; 87350; 87389; 87517; 87522; 87635; 87899; 87902; 93005; 93010; 93306-TC; 94640; 94660; 97163-GP; 99291; P9058